=== PATIENT | female | born 1930 | race Caucasian/White ===

== ENCOUNTER → 2016-05-17 | Outpatient (REF) | payer MEDICARE ==
[~2016-05-17] MED LIST: ALPR0.25 PO; ATEN25TA PO; CALCARB PO; CIPR25SS OR; COLA100C2 OR; CRANBERRY ORAL PO; DOXE25CA2 PO; FISH1000 PO; MACR50CA PO; MULTIVIT PO; NORV5TAB OR; OMEP20TA7 PO; SIMV20TA2 PO; VIT D PO
== END ==
LOC: M SFHCWAGY 17:06
PROVIDERS: ATTEND Nurse Practitioner Family
DX: N76.2 Acute vulvitis (principal)
CPT/HCPCS: 87070; G0463

== ENCOUNTER → 2016-12-27 | Outpatient (CLI) | payer MEDICARE ==
--- NOTE | 2016-12-27 13:34 | REPMRS ---
Patient History The patient states she had a clinical breast exam in 12/2016. Patient is postmenopausal and has history of endometrial cancer at age 46. Family history of colorectal cancer in mother at age 50 or over. Took estrogen for 20 years. Digital Woman Screen Mammo: December 27, 2016 - Exam #: [id number] Bilateral CC and MLO view(s) were taken. Technologist: Jayne Arriola, Technologist Prior study comparison: December 22, 2015, digital woman screen mammo performed at [facility]. December 23, 2014, digital woman screen mammo performed at [facility] to [facility]. FINDINGS: There are scattered fibroglandular densities. There has been no change in the appearance of the mammogram from the prior studies. There is a mild amount of residual fibroglandular tissue which is fairly symmetric. There is no interval development of dominant mass, architectural distortion, or clustered microcalcification suggestive of malignancy. ASSESSMENT: BI-RADS/ACR category 1 mammogram. Negative. Recommendation Routine screening mammogram in 1 year (for women over age 40). This mammogram was interpreted with the aid of an FDA-approved computer-aided dectection system. Electronically Signed By: Suhail Samayoa MD 12/27/16 [id number]
== END ==
LOC: M WHC 11:15
PROVIDERS: ATTEND Physician Assistant
DX: Z01.419 Encounter for gynecological examination (general) (routine) without abnormal findings (principal); Z12.31 Encounter for screening mammogram for malignant neoplasm of breast; Z78.0 Asymptomatic menopausal state; Z92.23 Personal history of estrogen therapy; Z85.42 Personal history of malignant neoplasm of other parts of uterus; Z12.12 Encounter for screening for malignant neoplasm of rectum; N76.2 Acute vulvitis; R19.5 Other fecal abnormalities
CPT/HCPCS: 82270; G0101; G0202

== ENCOUNTER → 2017-04-11 | Outpatient (CLI) | payer MEDICARE ==
[2017-04-11 18:27] LABS: ESTIMATED AVERAGE GLUCOSE 128 MG/DL (60-110); HEMOGLOBIN A1c 6.1 %
== END ==
LOC: M LRY 10:54
DX: R73.03 Prediabetes (principal)
CPT/HCPCS: 83036

== ENCOUNTER → 2017-07-11 | Outpatient (CLI) | payer MEDICARE ==
[2017-07-11 12:07] LABS: ALBUMIN 3.5 GM/DL (3.2-5.2); ALKALINE PHOSPHATASE 88 U/L (45-117); ALT/SGPT 20 U/L (12-78); ANION GAP 7 MEQ/L (8-16); AST/SGOT 19 U/L (7-37); BILIRUBIN,TOTAL 0.6 MG/DL (0.2-1.0); BLOOD UREA NITROGEN 26 MG/DL (7-18); CALCIUM LEVEL 9.2 MG/DL (8.8-10.2); CARBON DIOXIDE LEVEL 25 MEQ/L (21-32); CHLORIDE LEVEL 110 MEQ/L (98-107); CHOLESTEROL LEVEL 168 MG/DL (<200); CHOLESTEROL RISK RATIO 4.666 (<5); CREATININE FOR GFR 0.86 MG/DL (0.55-1.30); GLOMERULAR FILTRATION RATE > 60.0 (>32); GLUCOSE, FASTING 136 MG/DL (70-100); HDL CHOLESTEROL 36 MG/DL (>40); LDL CHOLESTEROL 84.2 MG/DL (<100); NON-HDL-C 132 MG/DL; POTASSIUM SERUM 4.3 MEQ/L (3.5-5.1); SODIUM LEVEL 142 MEQ/L (136-145); TRIGLYCERIDES LEVEL 239 MG/DL (<150)
[2017-07-11 12:21] LABS: ESTIMATED AVERAGE GLUCOSE 134 MG/DL (60-110); HEMOGLOBIN A1c 6.3 %
== END ==
LOC: M LRY 09:58
DX: R73.03 Prediabetes (principal)
CPT/HCPCS: 80053

== ENCOUNTER → 2017-10-17 | Outpatient (CLI) | payer MEDICARE ==
[2017-10-17 12:24] LABS: ESTIMATED AVERAGE GLUCOSE 128 MG/DL (60-110); HEMOGLOBIN A1c 6.1 %
[2017-10-17 12:30] LABS: ALBUMIN 3.4 GM/DL (3.2-5.2); ALBUMIN/GLOBULIN RATIO 0.94 (1.00-1.93); ALKALINE PHOSPHATASE 73 U/L (45-117); ALT/SGPT 20 U/L (12-78); ANION GAP 9 MEQ/L (8-16); AST/SGOT 17 U/L (7-37); BILIRUBIN,TOTAL 0.5 MG/DL (0.2-1.0); BLOOD UREA NITROGEN 27 MG/DL (7-18); CARBON DIOXIDE LEVEL 25 MEQ/L (21-32); CHLORIDE LEVEL 109 MEQ/L (98-107); CHOLESTEROL LEVEL 149 MG/DL (<200); CHOLESTEROL RISK RATIO 4.027 (<5); CREATININE FOR GFR 0.89 MG/DL (0.55-1.30); FREE T4 0.78 NG/DL (0.76-1.46); GLOMERULAR FILTRATION RATE > 60.0 (>32); GLUCOSE, FASTING 122 MG/DL (70-100); HDL CHOLESTEROL 37 MG/DL (>40); LDL CHOLESTEROL 60.4 MG/DL (<100); NON-HDL-C 112 MG/DL; POTASSIUM SERUM 4.4 MEQ/L (3.5-5.1); SODIUM LEVEL 143 MEQ/L (136-145); TRIGLYCERIDES LEVEL 258 MG/DL (<150)
== END ==
LOC: M LRY 09:03
DX: I12.9 Hypertensive chronic kidney disease with stage 1 through stage 4 chronic kidney disease, or unspecified chronic kidney disease (principal); E78.2 Mixed hyperlipidemia; R73.03 Prediabetes
CPT/HCPCS: 84443

== ENCOUNTER 2018-01-06 09:17 | Emergency (ER) | payer MEDICARE ==
[2018-01-06 10:04] LABS: BEDSIDE GLUCOSE 117 MG/DL (83-110)
[2018-01-06] MEDS: NS 500 ML IV ×2 (10:04→11:50)
[2018-01-06 10:15] LABS: BASO % 0.4 % (0.0-1.0); EOS # 0.1 10^3/uL (0.0-0.50); EOS % 1.4 % (0.0-3.0); HEMATOCRIT 41.3 % (36.0-47.0); HEMOGLOBIN 13.7 g/dl (12.0-15.5); IMMATURE GRANULOCYTE % 0.3 % (0-3.0); LYMPH # 1.8 10^3/uL (1.5-4.5); LYMPH % 23.6 % (24.0-44.0); MEAN CORPUSCULAR HEMOGLOBIN 31.6 pg (27.0-33.0); MEAN CORPUSCULAR HGB CONC 33.2 g/dl (32.0-36.5); MEAN CORPUSCULAR VOLUME 95.4 fl (80.0-96.0); MONO # 0.6 10^3/uL (0.0-0.8); MONO % 7.9 % (0.0-5.0); NEUTROPHILS # 5.1 10^3/uL (1.8-7.7); NEUTROPHILS % 66.4 % (36.0-66.0); PLATELET COUNT, AUTOMATED 241 10^3/uL (150-450); RED BLOOD COUNT 4.33 10^6/uL (4.00-5.40); WHITE BLOOD COUNT 7.6 10^3/uL (4.0-10.0)
[2018-01-06 10:33] LABS: AMMONIA 26 uMOL/L (<32)
[2018-01-06 11:10] LABS: AMORPHOUS SEDIMENT RFX SMALL (NEGATIVE); KETONE, URINE AUTO RFX NEGATIVE (NEGATIVE); LEUKOCYTE ESTERASE UR AUTO RFX 3+ (NEGATIVE); MUCUS, URINE RFX SMALL (NEGATIVE); NITRITE, URINE AUTO RFX NEGATIVE (NEGATIVE); RBC, URINE AUTO RFX 4 /HPF (0-3); SPECIFIC GRAVITY UR AUTO RFX 1.019 (1.002-1.035); SQUAM EPITHELIAL CELL UR AURFX 0 /HPF (0-6)
[2018-01-06 11:11] LABS: WBC, URINE AUTO RFX 15 /HPF (0-3)
[2018-01-06 11:17] LABS: ALBUMIN 3.3 GM/DL (3.2-5.2); ALKALINE PHOSPHATASE 72 U/L (45-117); ALT/SGPT 24 U/L (12-78); ANION GAP 6 MEQ/L (8-16); AST/SGOT 23 U/L (7-37); BILIRUBIN,DIRECT < 0.1 MG/DL (0.0-0.2); BILIRUBIN,TOTAL 0.4 MG/DL (0.2-1.0); BLOOD UREA NITROGEN 32 MG/DL (7-18); CARBON DIOXIDE LEVEL 29 MEQ/L (21-32); CHLORIDE LEVEL 108 MEQ/L (98-107); CPK CREATINE PHOSPHOKINASE 50 U/L (26-192); CREATININE FOR GFR 1.12 MG/DL (0.55-1.30); GLUCOSE, FASTING 120 MG/DL (70-100); POTASSIUM SERUM 4.4 MEQ/L (3.5-5.1); SODIUM LEVEL 143 MEQ/L (136-145); TOTAL PROTEIN 6.6 GM/DL (6.4-8.2); TROPONIN I < 0.02 NG/ML (< 0.10)
[2018-01-06] MEDS: PHENAZOPYRIDINE 100 MG TAB PO (13:01)
[2018-01-06] MEDS: CEPHALEXIN 500 MG CAP PO (13:01)
== END 2018-01-06 14:23 | disposition home or self-care (01) ==
LOC: M ED 09:17
DX: N39.0 Urinary tract infection, site not specified (principal); E86.0 Dehydration; I10 Essential (primary) hypertension; E78.5 Hyperlipidemia, unspecified; F41.9 Anxiety disorder, unspecified; Z79.899 Other long term (current) drug therapy; Z88.2 Allergy status to sulfonamides; Z87.891 Personal history of nicotine dependence
CPT/HCPCS: 70450

== ENCOUNTER → 2018-01-28 | Outpatient (CLI) | payer MEDICARE ==
[2018-01-28 17:35] LABS: ESTIMATED AVERAGE GLUCOSE 131 MG/DL (60-110); HEMOGLOBIN A1c 6.2 %
== END ==
LOC: M LRY 09:47
DX: R73.03 Prediabetes (principal)
CPT/HCPCS: 83036

== ENCOUNTER → 2018-02-04 | Outpatient (REF) | payer MEDICARE | LOC: M LAB REF 17:12 | DX: R30.0 Dysuria (principal) | CPT/HCPCS: 87186 ==

== ENCOUNTER → 2018-02-06 | Outpatient (CLI) | payer MEDICARE ==
[~2018-02-06] MED LIST changes: +8 HO650T2 PO; +FURO20TA2 PO; +KEFL500C17 PO; +NEUR100C PO; +PYRI1TAB5 PO
--- NOTE | 2018-02-06 12:57 | REPMRS ---
Patient History The patient states she had a clinical breast exam in 01/2018. Family history of colorectal cancer at age 50 or over in mother. Took estrogen for 20 years. 3D TOMOSYNTHESIS WAS PERFORMED. Digital Woman Screen Mammo: February 06, 2018 - Exam #: [id number] Bilateral CC and MLO view(s) were taken. Technologist: Jayne Arriola, Technologist Prior study comparison: December 27, 2016, digital woman screen mammo performed at [facility]. December 22, 2015, digital woman screen mammo performed at [facility] to [facility]. FINDINGS: There are scattered fibroglandular densities. There has been no change in the appearance of the mammogram from the prior studies. There is a mild amount of residual fibroglandular tissue which is fairly symmetric. There is no interval development of dominant mass, architectural distortion, or clustered microcalcification suggestive of malignancy. Assessment: BI-RADS/ACR category 1 mammogram. Negative. Recommendation Routine screening mammogram in 1 year (for women over age 40). This mammogram was interpreted with the aid of an FDA-approved computer-aided dectection system. Electronically Signed By: Suhail Samayoa MD 02/06/18 [id number]
== END ==
LOC: M WHC 10:59
PROVIDERS: ATTEND Nurse Practitioner Family
DX: Z01.419 Encounter for gynecological examination (general) (routine) without abnormal findings (principal); Z12.31 Encounter for screening mammogram for malignant neoplasm of breast; Z80.0 Family history of malignant neoplasm of digestive organs; Z92.23 Personal history of estrogen therapy; Z12.12 Encounter for screening for malignant neoplasm of rectum
CPT/HCPCS: 77063; 77067; 82270; G0101

== ENCOUNTER → 2018-02-14 | Outpatient (CLI) | payer MEDICARE ==
[2018-02-14 16:54] LABS: APPEARANCE, URINE HAZY (CLEAR); BACTERIA, URINE AUTO NEGATIVE (NEGATIVE); BILIRUBIN, URINE AUTO NEGATIVE (NEGATIVE); BLOOD, URINE BLOOD NEGATIVE (NEGATIVE); COLOR, URINE AMBER (YELLOW); GLUCOSE, URINE (UA) AUTO NEGATIVE (NEGATIVE); KETONE, URINE AUTO NEGATIVE (NEGATIVE); LEUKOCYTE ESTERASE, URINE AUTO 1+ (NEGATIVE); NITRITE, URINE AUTO NEGATIVE (NEGATIVE); PROTEIN, URINE AUTO 1+ mg/dL (NEGATIVE); RBC, URINE AUTO 3 /HPF (0-3); SPECIFIC GRAVITY URINE AUTO 1.025 (1.002-1.035); SQUAMOUS EPITHELIAL CELL UR AU 1 /HPF (0-6); UROBILINOGEN, URINE AUTO 0.2 mg/dL (0.0-2.0); WBC, URINE AUTO 8 /HPF (0-3)
== END ==
LOC: M LRY 10:00
PROVIDERS: ATTEND Physician Assistant
DX: N39.0 Urinary tract infection, site not specified (principal)

== ENCOUNTER → 2018-05-01 | Outpatient (CLI) | payer MEDICARE ==
[~2018-05-01] MED LIST changes: +AUGM875T28 PO; +CRAN400C PO; +DOCU100C16 PO; +DOXE25CA PO; +GABA-1171 PO; +METO1TAB7 PO; +OMEP20CA3 PO; +SERT25TA88 PO; +TYLE650T35 PO; +VITMTA PO
[2018-05-01 12:15] LABS: CHOLESTEROL RISK RATIO 4.526 (<5)
[2018-05-01 13:19] LABS: HEMOGLOBIN A1c 6.3 %
== END ==
LOC: M LRY 09:13
PROVIDERS: ATTEND Physician Assistant
DX: R73.03 Prediabetes (principal)

== ENCOUNTER → 2018-05-06 | Outpatient (REF) | payer MEDICARE | LOC: M LAB REF 17:49 | PROVIDERS: ATTEND Family Medicine | DX: N76.0 Acute vaginitis (principal) ==

== ENCOUNTER 2018-05-07 19:23 | Inpatient (IN) | payer MEDICARE ==
[~2018-05-07] VITALS: Ht 160 cm; Wt 70.5 kg
[2018-05-07] MEDS: DOXEPIN 25 MG CAP PO SCH (02:00)
[~2018-05-07 19:23] MED LIST changes: -AUGM875T28 PO; -CRAN400C PO; -DOCU100C16 PO; -DOXE25CA PO; -GABA-1171 PO; -METO1TAB7 PO; -OMEP20CA3 PO; -SERT25TA88 PO; -TYLE650T35 PO; -VITMTA PO
[2018-05-07] MEDS ORDERED: ACETAMINOPHEN 325 MG TAB As Ordered ONE (19:56)
[2018-05-07] MEDS ORDERED: NS 500 ML IV ONE (20:00)
[2018-05-07] MEDS ORDERED: ACETAMINOPHEN 325 MG TAB PO ONE ×2 (20:00)
[2018-05-07 20:19] LABS: BASO # 0.1 10^3/uL (0.0-0.2); BASO % 0.2 % (0.0-1.0); HEMATOCRIT 42.2 % (36.0-47.0); HEMOGLOBIN 14.1 g/dl (12.0-15.5); LYMPH # 0.7 10^3/uL (1.5-4.5); LYMPH % 2.9 % (24.0-44.0); MEAN CORPUSCULAR HEMOGLOBIN 31.3 pg (27.0-33.0); MEAN CORPUSCULAR HGB CONC 33.4 g/dl (32.0-36.5); MEAN CORPUSCULAR VOLUME 93.8 fl (80.0-96.0); MONO # 1.3 10^3/uL (0.0-0.8); MONO % 5.7 % (0.0-5.0); NEUTROPHILS # 20.7 10^3/uL (1.8-7.7); NEUTROPHILS % 90.5 % (36.0-66.0); PLATELET COUNT, AUTOMATED 236 10^3/uL (150-450); WHITE BLOOD COUNT 22.9 10^3/uL (4.0-10.0)
[2018-05-07 20:53] LABS: ALBUMIN 3.8 GM/DL (3.2-5.2); BILIRUBIN,TOTAL 0.5 MG/DL (0.2-1.0); CALCIUM LEVEL 9.1 MG/DL (8.8-10.2); CREATININE FOR GFR 1.33 MG/DL (0.55-1.30); FREE THYROXINE INDEX 1.7 % (1.3-4.8); GLOMERULAR FILTRATION RATE 40.2 (>32); POTASSIUM SERUM 3.9 MEQ/L (3.5-5.1); THYROID STIMULATING HORMONE 0.49 uIU/ML (0.358-3.740); TOTAL PROTEIN 7.4 GM/DL (6.4-8.2)
--- NOTE | 2018-05-07 21:05 | REP ---
PA and lateral chest: Comparison is the portable chest dated 04/02/2010. The costophrenic angles are mildly effaced compatible with infiltrates/effusions/combination, as an interval change. Lung lomax otherwise clear. Cardiac size is enlarged, unchanged. The hira, mediastinum, skeletal structures are unchanged. There is demineralization and thoracic spine kyphosis. Impression: Small bilateral pleural effusion/infiltrate/combination. Chronic cardiomegaly. Demineralization and kyphosis. Electronically Signed by Suhail Hua MD 05/07/2018 08:57 P
[2018-05-07 21:10] LABS: APPEARANCE, URINE HAZY (CLEAR); BACTERIA, URINE AUTO 1+ (NEGATIVE); BILIRUBIN, URINE AUTO NEGATIVE (NEGATIVE); BLOOD, URINE BLOOD NEGATIVE (NEGATIVE); COLOR, URINE YELLOW (YELLOW); GLUCOSE, URINE (UA) AUTO NEGATIVE (NEGATIVE); KETONE, URINE AUTO NEGATIVE (NEGATIVE); LEUKOCYTE ESTERASE, URINE AUTO 3+ (NEGATIVE); MUCUS, URINE SMALL (NEGATIVE); NITRITE, URINE AUTO NEGATIVE (NEGATIVE); PROTEIN, URINE AUTO 2+ mg/dL (NEGATIVE); RBC, URINE AUTO 10 /HPF (0-3); SPECIFIC GRAVITY URINE AUTO 1.018 (1.002-1.035); SQUAMOUS EPITHELIAL CELL UR AU 3 /HPF (0-6); UROBILINOGEN, URINE AUTO 0.2 mg/dL (0.0-2.0); WBC, URINE AUTO 121 /HPF (0-3)
[2018-05-07] MEDS ORDERED: cefTRIAXone SOD 2 GM in D5W MINI-BAG PLUS 50 ML IV ONE (21:15)
[2018-05-07] MEDS ORDERED: METO1TAB7 PO (21:45)
[2018-05-07] MEDS ORDERED: GABA-1171 PO (21:45)
[2018-05-07] MEDS ORDERED: ALPR0.25 PO (21:45)
[2018-05-07] MEDS ORDERED: TYLE650T35 PO ×2 (21:45)
[2018-05-07] MEDS ORDERED: AUGM875T28 PO (21:45)
[2018-05-07] MEDS ORDERED: DOXE25CA PO (21:45)
[2018-05-07] MEDS ORDERED: DOCU100C16 PO (21:45)
[2018-05-07] MEDS ORDERED: SERT25TA88 PO (21:45)
[2018-05-07] MEDS ORDERED: FURO20TA2 PO (21:45)
[2018-05-07] MEDS ORDERED: SIMV20TA2 PO (21:45)
[2018-05-07] MEDS ORDERED: VITMTA PO (21:45)
[2018-05-07] MEDS ORDERED: PYRI1TAB5 PO (21:45)
[2018-05-07] MEDS ORDERED: OMEP20CA3 PO (21:45)
[2018-05-07] MEDS ORDERED: CRAN400C PO (21:45)
[2018-05-07] MEDS ORDERED: FISH1000 PO (21:45)
[2018-05-07] MEDS ORDERED: ONDANSETRON 4MG/2ML VIAL (J2405) IV PRN (22:00)
[2018-05-07] MEDS ORDERED: DOCUSATE SODIUM 100 MG CAP PO PRN (22:00)
[2018-05-07] MEDS ORDERED: cefTRIAXone SOD 1 GM in D5W MINI-BAG PLUS 50 ML IV SCH (22:00)
[2018-05-07] MEDS ORDERED: NS 750 ML IV SCH (22:00)
[2018-05-07] MEDS ORDERED: ACETAMINOPHEN TAB 650MG DOSE (2X325MG) PO PRN (22:00)
[2018-05-07] MEDS ORDERED: OMEPRAZOLE 20 MG CAP PO PRN (22:00)
[2018-05-07] MEDS ORDERED: PILL CRUSHER/CUTTER 1 EACH XX PRN (22:15)
--- NOTE | 2018-05-07 23:03 | HPE ---
DATE OF ADMISSION: 05/07/2018 CHIEF COMPLAINT: Subjective fevers and chills, generalized feeling unwell. HISTORY OF THE PRESENT ILLNESS: The patient is an 88-year-old female, significant past medical history of hypertension, gastroesophageal reflux disease (GERD), hyperlipidemia, chronic kidney disease. She presented to the emergency room with one day of subjective fevers and chills, generalized feeling unwell, nausea. She presented to urgent care prior to presenting to the emergency room where she was diagnosed with a urinary tract infection (UTI). She was given Augmentin. She took one Augmentin prior to coming to the hospital, as she became somewhat confused at home. She is accompanied at the bedside by her family members. Currently patient's mentation is back intact. She has received some intravenous (IV) fluids as well as Rocephin in the emergency room. She denies any abdominal pain. She denies any dysuria, frequency, diarrhea, constipation, cough, chest pain, shortness of breath. PAST MEDICAL HISTORY: See history of the present illness. PAST SURGICAL HISTORY: She had a hysterectomy for uterine cancer. HOME MEDICATIONS: Includes: - Xanax. - She recently got a prescription for Augmentin for which she only took one pill today. - Lasix - gabapentin - metoprolol - omeprazole - Pyridium - Zoloft - Zocor ALLERGIES: To [employer], [employer]. Reaction is unknown. SOCIAL HISTORY: Former smoker. Denies alcohol or illicit drug use. FAMILY HISTORY: Cancers of gastrointestinal tract. REVIEW OF SYSTEMS: A 12-point review of systems was completed, all of which were negative except those listed in the history of the present illness. VITAL SIGNS ON ADMISSION: Maximum temperature (T max) 104, pulse of 97, respirations 24, blood pressure 153/65, saturating at 95% on room air. PHYSICAL EXAM: General: She is well nourished, in no apparent distress. Head is normocephalic, atraumatic Eyes: Extraocular movements are intact. Pupils equal, round, reactive to light. Neck is supple. No jugular venous pressure (JVP). Lungs: Clear to auscultation. No crackles, wheezes. Cardiovascular: Regular rate and rhythm. Normal S1, S2. No murmurs, gallops, or rubs. Abdomen: Soft, nontender, nondistended. Positive bowel sounds. No rebound, no guarding. Extremities: No pitting edema. No calf tenderness. Skin: Intact. No rashes, lesions, or breakdown. Neurological: Alert and oriented times three. No focal deficits appreciated on exam. LABS AND IMAGING: Done in the emergency room. White count of 22, hemoglobin and hematocrit of 14 over 42, platelets of 236. Chemistry shows a BUN and creatinine of 32 over 1.33, baseline creatinine of 1.1, lactate of 3.3. UA shows 121 WBCs, 10 RBCs, 3 squamous epithelial cells. Chest x-ray shows small bilateral pleural effusions, cardiomegaly. ASSESSMENT AND PLAN: Sepsis secondary to urinary tract infection. Will admit the patient to the medical-surgical floor, gentle hydration, ceftriaxone, urinalysis (UA), urine culture sent, trend as per sensitivities. For the rest of her chronic medical conditions: Anxiety: Continue Xanax as needed. Hypertension: Metoprolol with holding parameters. GERD: Continue proton pump inhibitor (PPI). Mood disorder: Continue Zoloft and Xanax. Hyperlipidemia: Continue Zocor. Supportive: Deep vein thrombosis (DVT) prophylaxis: Heparin subcu. Gastrointestinal (GI) prophylaxis: Already on PPI. Diet: Cardiac.
[2018-05-07] MEDS: SIMVASTATIN 20 MG TAB PO SCH (23:51)
[2018-05-07] MEDS: GABAPENTIN 100 MG CAP PO SCH (23:51)
[2018-05-07] MEDS: ALPRAZolam 0.25 MG TAB PO SCH (23:51)
[2018-05-08] MEDS: HEPARIN SOD (PORCINE) 5000 UNITS/ML VIAL SC SCH ×3 (06:17→22:01)
[2018-05-08 07:10] LABS: HEMATOCRIT 35.5 % (36.0-47.0); MEAN CORPUSCULAR HEMOGLOBIN 31.3 pg (27.0-33.0); MEAN CORPUSCULAR HGB CONC 33.8 g/dl (32.0-36.5); MEAN CORPUSCULAR VOLUME 92.4 fl (80.0-96.0); PLATELET COUNT, AUTOMATED 202 10^3/uL (150-450); RED BLOOD COUNT 3.84 10^6/uL (4.00-5.40); WHITE BLOOD COUNT 22.6 10^3/uL (4.0-10.0)
[2018-05-08 07:30] LABS: CALCIUM LEVEL 8.1 MG/DL (8.8-10.2); CREATININE FOR GFR 1.13 MG/DL (0.55-1.30); GLOMERULAR FILTRATION RATE 48.5 (>32); POTASSIUM SERUM 3.7 MEQ/L (3.5-5.1)
[2018-05-08 08:00] VITALS: BP 126/70
[2018-05-08] MEDS: MULTIVITAMINS/MINERALS THERAP 1 TAB PO SCH (08:53)
[2018-05-08] MEDS: GABAPENTIN 100 MG CAP PO SCH ×2 (08:53→22:01)
[2018-05-08] MEDS: SERTRALINE HCL 25 MG TABLET PO SCH (08:53)
[2018-05-08] MEDS: METOPROLOL SUCC (TopROL XL) 50MG **XL** TAB PO SCH (08:54)
[2018-05-08 14:00] VITALS: BP 141/60
[2018-05-08 16:00] VITALS: BP 145/61
--- NOTE | 2018-05-08 16:30 | IPNPDOC ---
Subjective Date Seen The patient was seen on 05/08/18. Subjective Chief Complaint/HPI Patient seen and examined at the bedside this morning. States that she feels much more alert and oriented this morning. Denies any acute overnight complaints. The patient's fever curve has trended downward and she remains hemodynamically stable. Objective Physical Examination General Exam: Positive: Alert, Cooperative, No Acute Distress ENT Exam: Positive: Atraumatic, Mucous membr. moist/pink Neck Exam: Negative: JVD Chest Exam: Positive: Clear to auscultation, Normal air movement Heart Exam: Positive: Rate Normal, Normal S1, Normal S2 Abdomen Exam: Positive: Soft; Negative: Tenderness Extremity Exam: Positive: Swelling (trace pitting in the lower extremities bilaterally); Negative: Tenderness Psych Exam: Positive: Oriented x 3 Assessment /Plan Plan/VTE VTE Prophylaxis Ordered?: Yes Plan Sepsis 2/2 UTI WBC downtrending and Fever curve has also improved following IV Abx therapy Patient reports feeling better this morning Cultures still pending Patient hemodynamically stable We will cont to monitor Dyslipidemia Continue statin Peripheral neuropathy Continue Neurontin GERD Continue PPI Anxiety/depression Continue Zoloft DVT prophylaxis Heparin subcutaneous Dispo--pending clinical improvement. Physical therapy ordered for functional optimization. VS, I&O, 24H, Fishbone Vital Signs/I&O Vital Signs Date Time Temp Pulse Resp B/P (MAP) Pulse Ox O2 Delivery O2 Flow Rate FiO2 05/08/18 14:00 97.1 77 17 141/60 (87) 95 05/08/18 05:20 Room Air I&O- Last 24 Hours up to 6 AM 05/08/18 06:00 Intake Total 50 ml Balance 50 ml Laboratory Data 24H LABS Laboratory Tests 2 05/07/18 20:02: Immature Granulocyte % (Auto) 0.7, White Blood Count 22.9H, Red Blood Count 4.50, Hemoglobin 14.1, Hematocrit 42.2, Mean Corpuscular Volume 93.8, Mean Corpuscular Hemoglobin 31.3, Mean Corpuscular Hemoglobin Concent 33.4, Red Cell Distribution Width 13.2, Platelet Count 236, Neutrophils (%) (Auto) 90.5H, Lymphocytes (%) (Auto) 2.9L, Monocytes (%) (Auto) 5.7H, Eosinophils (%) (Auto) 0.0, Basophils (%) (Auto) 0.2, Neutrophils # (Auto) 20.7H, Lymphocytes # (Auto) 0.7L, Monocytes # (Auto) 1.3H, Eosinophils # (Auto) 0.0, Basophils # (Auto) 0.1, Nucleated Red Blood Cells % (auto) 0.0, Urine Appearance HAZY, Urine Color YELLOW, Urine pH 5.0, Urine Specific Buhl 1.018, Urine Protein 2+H, Urine Glucose (UA) NEGATIVE, Urine Ketones NEGATIVE, Urine Urobilinogen 0.2, Urine Bilirubin NEGATIVE, Urine Leukocyte Esterase 3+H, Urine Blood NEGATIVE, Urine Nitrite NEGATIVE, Urine WBC (Auto) 121H, Urine RBC (Auto) 10H, Urine Hyaline Casts (Auto) 0, Urine Bacteria (Auto) 1+H, Urine Squamous Epithelial Cells 3, Urine Mucus (Auto) SMALL, Urine Sperm (Auto) , Anion Gap 11, Glomerular Filtration Rate 40.2, Lactic Acid Level 3.3*H, Blood Urea Nitrogen 32H, Creatinine 1.33H, Sodium Level 138, Potassium Level 3.9, Chloride Level 103, Carbon Dioxide Level 24, Calcium Level 9.1, Aspartate Amino Transf (AST/SGOT) 21, Alanine Aminotransferase (ALT/SGPT) 22, Alkaline Phosphatase 82, Total Bilirubin 0.5, Total Protein 7.4, Albumin 3.8, Albumin/Globulin Ratio 1.06, Thyroid Stimulating Hormone (TSH) 0.490, Free Thyroxine Index 1.7, Thyroxine (T4) 5.0, Triiodothyronine (T3) Uptake 34 05/08/18 00:29: Lactic Acid Followup at 4 Hours 2.1*H 05/08/18 06:44: Nucleated Red Blood Cells % (auto) 0.0, Anion Gap 8, Glomerular Filtration Rate 48.5, Blood Urea Nitrogen 34H, Creatinine 1.13, Sodium Level 139, Potassium Level 3.7, Chloride Level 106, Carbon Dioxide Level 25, Calcium Level 8.1L CBC/BMP Laboratory Tests 05/07/18 20:02 Red Blood Count 4.50, Mean Corpuscular Volume 93.8, Mean Corpuscular Hemoglobin 31.3, Mean Corpuscular Hemoglobin Concent 33.4, Red Cell Distribution Width 13.2, Neutrophils (%) (Auto) 90.5 H, Lymphocytes (%) (Auto) 2.9 L, Monocytes (%) (Auto) 5.7 H, Eosinophils (%) (Auto) 0.0, Basophils (%) (Auto) 0.2, Neutrophils # (Auto) 20.7 H, Lymphocytes # (Auto) 0.7 L, Monocytes # (Auto) 1.3 H, Eosinophils # (Auto) 0.0, Basophils # (Auto) 0.1, Calcium Level 9.1, Aspartate Amino Transf (AST/SGOT) 21, Alanine Aminotransferase (ALT/SGPT) 22, Alkaline Phosphatase 82, Total Bilirubin 0.5, Total Protein 7.4, Albumin 3.8 05/08/18 06:44 Red Blood Count 3.84 L, Mean Corpuscular Volume 92.4, Mean Corpuscular Hemo globin 31.3, Mean Corpuscular Hemoglobin Concent 33.8, Red Cell Distribution Width 13.6, Calcium Level 8.1 L Microbiology Microbiology 05/08/18 Blood Culture, Received Pending 05/07/18 Blood Culture, Received Pending 05/08/18 Respiratory Virus Panel (PCR) ([facility]) - Final, Complete 05/07/18 Urine Culture - Preliminary, Resulted Strep Agalactiae Group B ARACELI FERNANDEZ MD May 08, 2018 16:30
--- NOTE | 2018-05-08 20:48 | ECGEPIP ---
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
[2018-05-08 22:00] VITALS: BP 157/67
[2018-05-08] MEDS: cefTRIAXone SOD 1 GM in D5W MINI-BAG PLUS 50 ML IV SCH (22:01)
[2018-05-08] MEDS: DOXEPIN 25 MG CAP PO SCH (22:01)
[2018-05-08] MEDS: ALPRAZolam 0.25 MG TAB PO SCH (22:01)
[2018-05-08] MEDS: SIMVASTATIN 20 MG TAB PO SCH (22:01)
[2018-05-09] MEDS: HEPARIN SOD (PORCINE) 5000 UNITS/ML VIAL SC SCH ×3 (05:42→21:00)
[2018-05-09 06:00] VITALS: BP 162/74
[2018-05-09 06:46] LABS: HEMATOCRIT 34.8 % (36.0-47.0); HEMOGLOBIN 11.8 g/dl (12.0-15.5); MEAN CORPUSCULAR HEMOGLOBIN 31.1 pg (27.0-33.0); MEAN CORPUSCULAR HGB CONC 33.9 g/dl (32.0-36.5); MEAN CORPUSCULAR VOLUME 91.8 fl (80.0-96.0); PLATELET COUNT, AUTOMATED 185 10^3/uL (150-450); RED BLOOD COUNT 3.79 10^6/uL (4.00-5.40); WHITE BLOOD COUNT 13.3 10^3/uL (4.0-10.0)
[2018-05-09 07:13] LABS: CALCIUM LEVEL 8.4 MG/DL (8.8-10.2); GLOMERULAR FILTRATION RATE 55.8 (>32); POTASSIUM SERUM 3.6 MEQ/L (3.5-5.1)
[2018-05-09] MEDS: GABAPENTIN 100 MG CAP PO SCH ×2 (09:42→20:59)
[2018-05-09] MEDS: SERTRALINE HCL 25 MG TABLET PO SCH (09:43)
[2018-05-09] MEDS: MULTIVITAMINS/MINERALS THERAP 1 TAB PO SCH (09:43)
[2018-05-09] MEDS: METOPROLOL SUCC (TopROL XL) 50MG **XL** TAB PO SCH (09:44)
[2018-05-09 14:00] VITALS: BP 141/59
[2018-05-09] MEDS: DOXEPIN 25 MG CAP PO SCH (20:59)
[2018-05-09] MEDS: ALPRAZolam 0.25 MG TAB PO SCH (20:59)
[2018-05-09] MEDS: cefTRIAXone SOD 1 GM in D5W MINI-BAG PLUS 50 ML IV SCH (21:00)
[2018-05-09] MEDS: SIMVASTATIN 20 MG TAB PO SCH (21:00)
[2018-05-09 22:00] VITALS: BP 147/73
--- NOTE | 2018-05-09 23:20 | IPNPDOC ---
Subjective Date Seen The patient was seen on 05/09/18. Subjective Chief Complaint/HPI Fever, chills, confusion Events since last encounter Feels much better today. Though still continues to complains of vaginal discomfort. No further feveres or chills. Objective Physical Examination General Exam: Positive: Alert, Cooperative, No Acute Distress ENT Exam: Positive: Atraumatic, Mucous membr. moist/pink Neck Exam: Negative: JVD Chest Exam: Positive: Clear to auscultation, Normal air movement Heart Exam: Positive: Rate Normal, Normal S1, Normal S2 Abdomen Exam: Positive: Soft; Negative: Tenderness Extremity Exam: Positive: Swelling (trace pitting in the lower extremities bilaterally); Negative: Tenderness Psych Exam: Positive: Oriented x 3 Assessment /Plan Assessment The patient is an 88-year-old female, significant past medical history of hypertension, gastroesophageal reflux disease (GERD), hyperlipidemia, chronic kidney disease. She presented to the emergency room with one day of subjective fevers and chills, generalized feeling unwell, nausea. She presented to urgent care prior to presenting to the emergency room where she was diagnosed with a urinary tract infection (UTI). She was given Augmentin. She took one Augmentin prior to coming to the hospital, as she became somewhat confused at home. In the ED she was noted to have high temp of 104 , UA was dirty. So the patient was diagnosed with UTI and sepsis and admitted. Sepsis 2/2 UTI urine culture staph agalactiae. culture of the vulva and vaginal area from urgent care shows staph agalactiae and MSSA continue ceftriaxone. Delirium due to infection and high fever Now resolved. Vulvo Vaginal fungal infection patient on clotrimazole/ steroid cream and well as intravaginal cotrimale. Dyslipidemia Continue statin Peripheral neuropathy Continue Neurontin GERD Continue PPI Anxiety/depression Continue Zoloft DVT prophylaxis Heparin subcutaneous Dispo--pending clinical improvement. Physical therapy ordered for functional optimization. Plan/VTE VTE Prophylaxis Ordered?: Yes VS, I&O, 24H, Fishbone Vital Signs/I&O Vital Signs Date Time Temp Pulse Resp B/P (MAP) Pulse Ox O2 Delivery O2 Flow Rate FiO2 05/09/18 14:00 99.0 76 17 141/59 (86) 95 05/08/18 05:20 Room Air I&O- Last 24 Hours up to 6 AM 05/09/18 06:00 Intake Total 2160 ml Output Total 0 ml Balance 2160 ml Laboratory Data 24H LABS Laboratory Tests 2 05/09/18 06:33: Nucleated Red Blood Cells % (auto) 0.0, Anion Gap 7L, Glomerular Filtration Rate 55.8, Blood Urea Nitrogen 31H, Creatinine 1.00, Sodium Level 140, Potassium Level 3.6, Chloride Level 107, Carbon Dioxide Level 26, Calcium Level 8.4L CBC/BMP Laboratory Tests 05/09/18 06:33 Red Blood Count 3.79 L, Mean Corpuscular Volume 91.8, Mean Corpuscular Hemoglobin 31.1, Mean Corpuscular Hemoglobin Concent 33.9, Red Cell Distribution Width 13.5, Calcium Level 8.4 L Microbiology Microbiology 05/08/18 Blood Culture - Preliminary, Resulted No growth after 24 hours . All specim... 05/07/18 Blood Culture - Preliminary, Resulted No Growth after 48 hours. All Specime... 05/08/18 Respiratory Virus Panel (PCR) ([facility]) - Final, Complete 05/07/18 Urine Culture - Final, Complete Strep Agalactiae Group B RACHEL ROBLERO MD May 09, 2018 23:19
[2018-05-10] MEDS: HEPARIN SOD (PORCINE) 5000 UNITS/ML VIAL SC SCH (05:36)
[2018-05-10 06:00] VITALS: BP 170/86
[2018-05-10 06:56] LABS: HEMATOCRIT 36.2 % (36.0-47.0); MEAN CORPUSCULAR HEMOGLOBIN 30.5 pg (27.0-33.0); MEAN CORPUSCULAR HGB CONC 33.1 g/dl (32.0-36.5); MEAN CORPUSCULAR VOLUME 92.1 fl (80.0-96.0); PLATELET COUNT, AUTOMATED 202 10^3/uL (150-450); RED BLOOD COUNT 3.93 10^6/uL (4.00-5.40); WHITE BLOOD COUNT 7.4 10^3/uL (4.0-10.0)
[2018-05-10 07:19] LABS: BLOOD UREA NITROGEN 26 MG/DL (7-18); CALCIUM LEVEL 8.6 MG/DL (8.8-10.2); CARBON DIOXIDE LEVEL 26 MEQ/L (21-32); CHLORIDE LEVEL 109 MEQ/L (98-107); CREATININE FOR GFR 0.88 MG/DL (0.55-1.30); GLOMERULAR FILTRATION RATE > 60.0 (>32); GLUCOSE, FASTING 131 MG/DL (70-100); POTASSIUM SERUM 3.7 MEQ/L (3.5-5.1); SODIUM LEVEL 141 MEQ/L (136-145)
[2018-05-10] MEDS: SERTRALINE HCL 25 MG TABLET PO SCH (08:45)
[2018-05-10] MEDS: GABAPENTIN 100 MG CAP PO SCH (08:45)
[2018-05-10] MEDS: MULTIVITAMINS/MINERALS THERAP 1 TAB PO SCH (08:45)
[2018-05-10 08:48] VITALS: BP 156/77
[2018-05-10] MEDS: METOPROLOL SUCC (TopROL XL) 50MG **XL** TAB PO SCH (08:48)
[2018-05-10] MEDS ORDERED: CEFD1CAP8 PO (09:29)
== END 2018-05-10 11:30 | disposition home or self-care (01) | DRG 872 ==
LOC: M ED 19:23 → EDBD 19:23 → M ED INP 21:47 → M MS5PR 05-08 15:49
PROVIDERS: ADMIT Internal Medicine; ATTEND Internal Medicine Nephrology
DX: A41.9 Sepsis, unspecified organism (principal); N39.0 Urinary tract infection, site not specified; N76.0 Acute vaginitis; F41.9 Anxiety disorder, unspecified; I12.9 Hypertensive chronic kidney disease with stage 1 through stage 4 chronic kidney disease, or unspecified chronic kidney disease; K21.9 Gastro-esophageal reflux disease without esophagitis; Z87.891 Personal history of nicotine dependence; E78.5 Hyperlipidemia, unspecified; N18.9 Chronic kidney disease, unspecified; Z79.899 Other long term (current) drug therapy; G62.9 Polyneuropathy, unspecified; F32.9 Major depressive disorder, single episode, unspecified

== ENCOUNTER → 2018-05-07 | Outpatient (REF) | payer MEDICARE | LOC: M SFHCLERA 14:02 | PROVIDERS: ATTEND Nurse Practitioner Family | DX: N30.01 Acute cystitis with hematuria (principal) ==

== ENCOUNTER → 2018-05-28 | Outpatient (REF) | payer MEDICARE ==
[~2018-05-28] MED LIST changes: +AUGM875T28 PO; +CEFD1CAP8 PO; +CRAN400C PO; +DOCU100C16 PO; +DOXE25CA PO; +GABA-1171 PO; +METO1TAB7 PO; +OMEP20CA3 PO; +SERT25TA88 PO; +TYLE650T35 PO; +VITMTA PO
[2018-05-28 18:48] LABS: APPEARANCE, URINE HAZY (CLEAR); BACTERIA, URINE AUTO NEGATIVE (NEGATIVE); BILIRUBIN, URINE AUTO NEGATIVE (NEGATIVE); BLOOD, URINE BLOOD NEGATIVE (NEGATIVE); COLOR, URINE YELLOW (YELLOW); GLUCOSE, URINE (UA) AUTO NEGATIVE (NEGATIVE); KETONE, URINE AUTO NEGATIVE (NEGATIVE); LEUKOCYTE ESTERASE, URINE AUTO 1+ (NEGATIVE); MUCUS, URINE SMALL (NEGATIVE); NITRITE, URINE AUTO NEGATIVE (NEGATIVE); PROTEIN, URINE AUTO NEGATIVE (NEGATIVE); RBC, URINE AUTO 1 /HPF (0-3); SPECIFIC GRAVITY URINE AUTO 1.021 (1.002-1.035); SQUAMOUS EPITHELIAL CELL UR AU 1 /HPF (0-6); UROBILINOGEN, URINE AUTO 0.2 mg/dL (0.0-2.0); WBC, URINE AUTO 30 /HPF (0-3)
== END ==
LOC: M SMT 17:26
PROVIDERS: ATTEND Nurse Practitioner Family
DX: N39.0 Urinary tract infection, site not specified (principal)
CPT/HCPCS: 51798; 81001; 87086; G0463

== ENCOUNTER → 2018-06-05 | Outpatient (CLI) | payer MEDICARE ==
--- NOTE | 2018-06-05 12:08 | REP ---
RENAL AND BLADDER ULTRASOUND: Real-time sonographic evaluation of the kidneys is performed. The kidneys are normal in size but increased in echotexture suggesting medical renal disease. Right kidney measures 10.2 x 6.0 x 5.0 cm and left kidney 9.5 x 4.9 x 4.7 cm. There is no hydronephrosis bilaterally. A cyst is seen in the mid right kidney measuring 6.5 x 5.7 x 7.0 cm. There are a few peripheral septations within the cyst which appear mildly thickened. This was present on the prior study of 04/03/2010, with a similar appearance but the cyst has increased in size on the current exam. Prior measurement was 5.1 x 4.9 x 3.9 cm. Urinary bladder is not optimally distended 4.9 x 5.8 x 3.3 cm for a total volume of 49 mL. No gross mass or calculus is seen. Ureteral jets are seen in the urinary bladder with Doppler color evaluation. There is post-void residual of 24 mL. IMPRESSION: Complex cyst mid right kidney with a few peripheral thickened internal septations having a similar appearance to a prior study 04/03/2010. It has mildly increased in size since that prior exam, previously maximum diameter was 5.1 cm and currently 7.0 cm. Echogenic kidney suggests medical renal disease. No hydronephrosis. Electronically Signed by Suhail Samayoa MD 06/05/2018 03:21 P
== END ==
LOC: M RAD 10:27
PROVIDERS: ATTEND Nurse Practitioner Family
DX: N28.1 Cyst of kidney, acquired (principal); N39.0 Urinary tract infection, site not specified; N76.0 Acute vaginitis

== ENCOUNTER → 2018-06-05 | Outpatient (REF) | payer MEDICARE | LOC: M LAB REF 17:36 | PROVIDERS: ATTEND Physician Assistant | DX: N76.0 Acute vaginitis (principal) ==

== ENCOUNTER → 2018-07-31 | Outpatient (CLI) | payer MEDICARE ==
[2018-07-31 11:51] LABS: BASO % 0.6 % (0.0-1.0); EOS # 0.2 10^3/uL (0.0-0.50); EOS % 2.4 % (0.0-3.0); HEMATOCRIT 43.1 % (36.0-47.0); HEMOGLOBIN 14.3 g/dl (12.0-15.5); LYMPH # 2.2 10^3/uL (1.5-4.5); MEAN CORPUSCULAR HEMOGLOBIN 31.2 pg (27.0-33.0); MEAN CORPUSCULAR HGB CONC 33.2 g/dl (32.0-36.5); MEAN CORPUSCULAR VOLUME 94.1 fl (80.0-96.0); MONO # 0.5 10^3/uL (0.0-0.8); MONO % 7.7 % (0.0-5.0); NEUTROPHILS # 3.4 10^3/uL (1.8-7.7); NEUTROPHILS % 54.1 % (36.0-66.0); PLATELET COUNT, AUTOMATED 254 10^3/uL (150-450); RED BLOOD COUNT 4.58 10^6/uL (4.00-5.40); WHITE BLOOD COUNT 6.3 10^3/uL (4.0-10.0)
[2018-07-31 12:16] LABS: HEMOGLOBIN A1c 6.2 %
[2018-07-31 12:56] LABS: ALBUMIN 3.5 GM/DL (3.2-5.2); BILIRUBIN,TOTAL 0.5 MG/DL (0.2-1.0); CALCIUM LEVEL 9.2 MG/DL (8.8-10.2); CHOLESTEROL RISK RATIO 4.194 (<5); CREATININE FOR GFR 1.01 MG/DL (0.55-1.30); FREE T4 0.86 NG/DL (0.76-1.46); GLOMERULAR FILTRATION RATE 55.2 (>32); POTASSIUM SERUM 4.4 MEQ/L (3.5-5.1); THYROID STIMULATING HORMONE 1.14 uIU/ML (0.358-3.740); TOTAL PROTEIN 7.1 GM/DL (6.4-8.2)
== END ==
LOC: M LRY 09:20
PROVIDERS: ATTEND Family Medicine
DX: I12.9 Hypertensive chronic kidney disease with stage 1 through stage 4 chronic kidney disease, or unspecified chronic kidney disease (principal); R73.03 Prediabetes; K21.9 Gastro-esophageal reflux disease without esophagitis; E78.2 Mixed hyperlipidemia

== ENCOUNTER 2018-10-19 15:31 | Emergency (ER) | payer MEDICARE ==
[~2018-10-19] VITALS: Ht 154.9 cm; Wt 70.0 kg
[~2018-10-19 15:31] MED LIST changes: -OMEP20CA3 PO; +OMEP20CA4 PO
[2018-10-19 16:17] LABS: BASO % 0.6 % (0.0-1.0); EOS # 0.2 10^3/uL (0.0-0.50); EOS % 2.1 % (0.0-3.0); HEMATOCRIT 44.6 % (36.0-47.0); HEMOGLOBIN 14.7 g/dl (12.0-15.5); LYMPH # 1.7 10^3/uL (1.5-4.5); LYMPH % 23.3 % (24.0-44.0); MEAN CORPUSCULAR HEMOGLOBIN 31.2 pg (27.0-33.0); MEAN CORPUSCULAR VOLUME 94.7 fl (80.0-96.0); MONO # 0.6 10^3/uL (0.0-0.8); MONO % 8.1 % (0.0-5.0); NEUTROPHILS # 4.8 10^3/uL (1.8-7.7); NEUTROPHILS % 65.6 % (36.0-66.0); PLATELET COUNT, AUTOMATED 249 10^3/uL (150-450); RED BLOOD COUNT 4.71 10^6/uL (4.00-5.40); WHITE BLOOD COUNT 7.3 10^3/uL (4.0-10.0)
[2018-10-19 16:47] LABS: CALCIUM LEVEL 9.7 MG/DL (8.8-10.2); CREATININE FOR GFR 0.94 MG/DL (0.55-1.30)
[2018-10-19] MEDS ORDERED: NS 500 ML IV ONE (17:30)
[2018-10-19] MEDS ORDERED: CIPROFLOXACIN 400 MG in APPROPRIATE DILUENT 1 EA IV ONE (17:30)
[2018-10-19 18:46] VITALS: BP 184/77
[2018-10-19] MEDS ORDERED: CIPR-249 PO (18:53)
== END 2018-10-19 19:13 | disposition home or self-care (01) ==
LOC: M ED 15:31
DX: N39.0 Urinary tract infection, site not specified (principal); I10 Essential (primary) hypertension; E78.5 Hyperlipidemia, unspecified; Z87.440 Personal history of urinary (tract) infections; Z86.19 Personal history of other infectious and parasitic diseases; Z87.891 Personal history of nicotine dependence; Z88.2 Allergy status to sulfonamides; Z79.899 Other long term (current) drug therapy
CPT/HCPCS: 80048; 81001; 83605; 85025; 87086; 96365; 99284; J0744

== ENCOUNTER → 2018-10-30 | Outpatient (CLI) | payer MEDICARE ==
[~2018-10-30] MED LIST changes: +CIPR-249 PO
[2018-10-30 11:45] LABS: BLOOD UREA NITROGEN 20 MG/DL (7-18); CALCIUM LEVEL 9.4 MG/DL (8.8-10.2); CARBON DIOXIDE LEVEL 27 MEQ/L (21-32); CHLORIDE LEVEL 109 MEQ/L (98-107); CREATININE FOR GFR 0.89 MG/DL (0.55-1.30); GLOMERULAR FILTRATION RATE > 60.0 (>32); GLUCOSE, FASTING 141 MG/DL (70-100); POTASSIUM SERUM 4.3 MEQ/L (3.5-5.1); SODIUM LEVEL 144 MEQ/L (136-145)
[2018-10-30 12:44] LABS: HEMOGLOBIN A1c 6.5 %
== END ==
LOC: M LRY 09:58
PROVIDERS: ATTEND Physician Assistant
DX: Z00.00 Encounter for general adult medical examination without abnormal findings (principal); R73.03 Prediabetes

== ENCOUNTER → 2018-11-05 | Outpatient (REF) | payer MEDICARE | LOC: M LABDRAW1 16:56 | PROVIDERS: ATTEND Family Medicine | DX: R60.0 Localized edema (principal); Z79.899 Other long term (current) drug therapy ==

== ENCOUNTER → 2018-11-12 | Outpatient (REF) | payer MEDICARE ==
[2018-11-12 20:42] LABS: APPEARANCE, URINE CLOUDY (CLEAR); BACTERIA, URINE AUTO 2+ (NEGATIVE); BILIRUBIN, URINE AUTO NEGATIVE (NEGATIVE); BLOOD, URINE BLOOD NEGATIVE (NEGATIVE); COLOR, URINE YELLOW (YELLOW); GLUCOSE, URINE (UA) AUTO NEGATIVE (NEGATIVE); KETONE, URINE AUTO NEGATIVE (NEGATIVE); LEUKOCYTE ESTERASE, URINE AUTO 3+ (NEGATIVE); MUCUS, URINE SMALL (NEGATIVE); NITRITE, URINE AUTO NEGATIVE (NEGATIVE); PROTEIN, URINE AUTO 1+ mg/dL (NEGATIVE); RBC, URINE AUTO 3 /HPF (0-3); SQUAMOUS EPITHELIAL CELL UR AU 20 /HPF (0-6); UROBILINOGEN, URINE AUTO 0.2 mg/dL (0.0-2.0); WBC, URINE AUTO 128 /HPF (0-3)
== END ==
LOC: M SMT 17:01
PROVIDERS: ATTEND Nurse Practitioner Family
DX: R30.0 Dysuria (principal)
CPT/HCPCS: 81001; 87088; 87186; G0463

== ENCOUNTER 2018-12-20 13:42 | Emergency (ER) | payer MEDICARE ==
[~2018-12-20] VITALS: Ht 154.9 cm; Wt 69.0 kg
[~2018-12-20 13:42] MED LIST changes: +SERT25TA21 PO; -SERT25TA88 PO
[2018-12-20] MEDS ORDERED: ONDANSETRON 4MG/2ML VIAL (J2405) IV ONE (14:15)
[2018-12-20] MEDS ORDERED: MORPHINE 2 MG/ML 1ML VIAL (J2270) IV PRN (14:15)
[2018-12-20] MEDS ORDERED: SERT25TA21 (14:20)
[2018-12-20] MEDS ORDERED: NITR100C2 (14:20)
--- NOTE | 2018-12-20 15:02 | REP ---
Single view right shoulder. Indication: Right shoulder trauma. Comparison: 05/07/2018. Findings: There is anterior inferior dislocation of the humerus from the glenohumeral joint without evidence of fracture. The visualized lung is clear. Impression: Dislocated right shoulder. Electronically Signed by Wilberto Rob DO 12/20/2018 02:53 P
[2018-12-20] MEDS ORDERED: LIDOCAINE 2% MDV 20 ML VIAL SC ONE (15:15)
[2018-12-20] MEDS ORDERED: NS 1,000 ML IV SCH (15:46)
[2018-12-20] MEDS ORDERED: PROPOFOL 200 MG/20 ML VIAL IV PRN (16:00)
[2018-12-20 17:15] VITALS: BP 170/79
--- NOTE | 2018-12-20 20:36 | REP ---
HISTORY: Single portable view of the right shoulder, status post glenohumeral dislocation reduction. This limited single portable AP view of the right shoulder shows the position of the humeral head to be superimposed over the glenoid region significantly changed from the prior exam when it was inferiorly displaced. Since this exam is limited by one view, I cannot confirm exact placement, however. This single limited exam cannot rule out a fracture. I see no definite fracture. IMPRESSION: As above. Correlate clinically. Electronically Signed by Saul Hodgson DO 12/23/2018 02:52 P
== END 2018-12-20 18:41 | disposition home or self-care (01) ==
LOC: M ED 13:42
DX: I10 Essential (primary) hypertension (principal); S43.014A Anterior dislocation of right humerus, initial encounter; S43.034A Inferior dislocation of right humerus, initial encounter; W19.XXXA Unspecified fall, initial encounter; Y92.9 Unspecified place or not applicable; Y93.9 Activity, unspecified; Y99.9 Unspecified external cause status; K21.9 Gastro-esophageal reflux disease without esophagitis; Z85.42 Personal history of malignant neoplasm of other parts of uterus; Z87.891 Personal history of nicotine dependence; Z88.2 Allergy status to sulfonamides
CPT/HCPCS: 23655; 73020; 73030; 93041; 94760; 96374; 96375; 99285; J2270; J2405

== ENCOUNTER → 2019-01-27 | Outpatient (REF) | payer MEDICARE ==
[~2019-01-27] MED LIST changes: +NITR100C2; +SERT25TA21; +SIMV20TA22 PO
[2019-01-27 19:39] LABS: APPEARANCE, URINE CLEAR (CLEAR); BACTERIA, URINE AUTO NEGATIVE (NEGATIVE); BILIRUBIN, URINE AUTO NEGATIVE (NEGATIVE); BLOOD, URINE BLOOD NEGATIVE (NEGATIVE); COLOR, URINE YELLOW (YELLOW); GLUCOSE, URINE (UA) AUTO NEGATIVE (NEGATIVE); KETONE, URINE AUTO NEGATIVE (NEGATIVE); LEUKOCYTE ESTERASE, URINE AUTO 1+ (NEGATIVE); NITRITE, URINE AUTO NEGATIVE (NEGATIVE); PROTEIN, URINE AUTO NEGATIVE (NEGATIVE); RBC, URINE AUTO 4 /HPF (0-3); SPECIFIC GRAVITY URINE AUTO 1.017 (1.002-1.035); SQUAMOUS EPITHELIAL CELL UR AU 1 /HPF (0-6); UROBILINOGEN, URINE AUTO 0.2 mg/dL (0.0-2.0); WBC, URINE AUTO 11 /HPF (0-3)
== END ==
LOC: M SMT 17:34
PROVIDERS: ATTEND Nurse Practitioner Family
DX: N39.0 Urinary tract infection, site not specified (principal)

== ENCOUNTER → 2019-01-29 | Outpatient (CLI) | payer MEDICARE ==
[2019-01-29 13:48] LABS: BASO # 0.1 10^3/uL (0.0-0.2); BASO % 0.6 % (0.0-1.0); EOS # 0.2 10^3/uL (0.0-0.5); EOS % 2.5 % (0.0-3.0); HEMATOCRIT 41.6 % (36.0-47.0); HEMOGLOBIN 13.6 g/dl (12.0-15.5); LYMPH # 1.4 10^3/uL (1.5-5.0); LYMPH % 17.5 % (24.0-44.0); MEAN CORPUSCULAR HEMOGLOBIN 30.7 pg (27.0-33.0); MEAN CORPUSCULAR HGB CONC 32.7 g/dl (32.0-36.5); MEAN CORPUSCULAR VOLUME 93.9 fl (80.0-96.0); MONO # 0.6 10^3/uL (0.0-0.8); MONO % 7.8 % (0.0-5.0); NEUTROPHILS # 5.8 10^3/uL (1.5-8.5); NEUTROPHILS % 71.4 % (36.0-66.0); PLATELET COUNT, AUTOMATED 266 10^3/uL (150-450); RED BLOOD COUNT 4.43 10^6/uL (4.00-5.40); WHITE BLOOD COUNT 8.1 10^3/uL (4.0-10.0)
[2019-01-29 14:10] LABS: HEMOGLOBIN A1c 6.2 %
[2019-01-29 14:13] LABS: ALBUMIN 3.3 GM/DL (3.2-5.2); ALT/SGPT 16 U/L (12-78); BILIRUBIN,TOTAL 0.8 MG/DL (0.2-1.0); BLOOD UREA NITROGEN 22 MG/DL (7-18); CALCIUM LEVEL 9.5 MG/DL (8.8-10.2); CARBON DIOXIDE LEVEL 30 MEQ/L (21-32); CHLORIDE LEVEL 107 MEQ/L (98-107); CREATININE FOR GFR 0.86 MG/DL (0.55-1.30); GLOMERULAR FILTRATION RATE > 60.0 (>32); GLUCOSE, FASTING 124 MG/DL (70-100); POTASSIUM SERUM 4.1 MEQ/L (3.5-5.1); SODIUM LEVEL 142 MEQ/L (136-145)
== END ==
LOC: M LRY 09:24
PROVIDERS: ATTEND Family Medicine
DX: N18.3 Chronic kidney disease, stage 3 (moderate) (principal); E11.22 Type 2 diabetes mellitus with diabetic chronic kidney disease

== ENCOUNTER → 2019-02-07 | Outpatient (CLI) | payer MEDICARE ==
[~2019-02-07] MED LIST changes: +OMEP1CAP73 PO; -OMEP20CA4 PO
--- NOTE | 2019-02-07 14:47 | REPMRS ---
Patient History The patient states she had a clinical breast exam in 2018. Family history of colorectal cancer at age 50 or over in mother. Took estrogen for 20 years. 3D TOMOSYNTHESIS WAS PERFORMED. Digital Woman Screen Mammo: February 07, 2019 - Exam #: [id number] Bilateral CC and MLO view(s) were taken. Technologist: Shanique Gong, Technologist Prior study comparison: February 06, 2018, bilateral digital woman screen mammo performed at [facility]. December 27, 2016, digital woman screen mammo performed at [facility]. FINDINGS: There are scattered fibroglandular densities. There has been no change in the appearance of the mammogram from the prior studies. There is a mild amount of residual fibroglandular tissue which is fairly symmetric. There is no interval development of dominant mass, architectural distortion, or clustered microcalcification suggestive of malignancy. Assessment: BI-RADS/ACR category 1 mammogram. Negative Mammogram. Recommendation Routine screening mammogram in 1 year (for women over age 40). This mammogram was interpreted with the aid of an FDA-approved computer-aided dectection system. Electronically Signed By: Suhail Samayoa MD 02/07/19 [id number]
== END ==
LOC: M WHC 13:24
PROVIDERS: ATTEND Nurse Practitioner Family
DX: Z12.31 Encounter for screening mammogram for malignant neoplasm of breast (principal); Z80.0 Family history of malignant neoplasm of digestive organs; Z92.23 Personal history of estrogen therapy
CPT/HCPCS: 77063; 77067; G0463

== ENCOUNTER → 2019-05-05 | Outpatient (REF) | payer MEDICARE | LOC: M SMT 12:54 | PROVIDERS: ATTEND Nurse Practitioner Family | DX: N39.0 Urinary tract infection, site not specified (principal); E78.2 Mixed hyperlipidemia; E11.22 Type 2 diabetes mellitus with diabetic chronic kidney disease; R60.0 Localized edema | CPT/HCPCS: 36415; 80053; 80061; 83036; 84439; 84443; 85025; 87088; 87186; G0463 ==

== ENCOUNTER → 2019-05-05 | Outpatient (CLI) | payer MEDICARE ==
[2019-05-05 13:19] LABS: BASO # 0.1 10^3/uL (0.0-0.2); BASO % 0.9 % (0.0-1.0); EOS # 0.2 10^3/uL (0.0-0.5); EOS % 3.2 % (0.0-3.0); HEMATOCRIT 43.2 % (36.0-47.0); HEMOGLOBIN 14.1 g/dl (12.0-15.5); LYMPH # 1.8 10^3/uL (1.5-5.0); LYMPH % 27.8 % (24.0-44.0); MEAN CORPUSCULAR HEMOGLOBIN 30.9 pg (27.0-33.0); MEAN CORPUSCULAR HGB CONC 32.6 g/dl (32.0-36.5); MEAN CORPUSCULAR VOLUME 94.7 fl (80.0-96.0); MONO # 0.6 10^3/uL (0.0-0.8); MONO % 8.7 % (0.0-5.0); NEUTROPHILS # 3.8 10^3/uL (1.5-8.5); NEUTROPHILS % 59.1 % (36.0-66.0); PLATELET COUNT, AUTOMATED 250 10^3/uL (150-450); RED BLOOD COUNT 4.56 10^6/uL (4.00-5.40); WHITE BLOOD COUNT 6.3 10^3/uL (4.0-10.0)
[2019-05-05 13:37] LABS: ALBUMIN 3.7 GM/DL (3.2-5.2); BILIRUBIN,TOTAL 0.5 MG/DL (0.2-1.0); CALCIUM LEVEL 9.2 MG/DL (8.8-10.2); CHOLESTEROL RISK RATIO 4.256 (<5); CREATININE FOR GFR 0.99 MG/DL (0.55-1.30); GLOMERULAR FILTRATION RATE 56.4 (>32); POTASSIUM SERUM 4.3 MEQ/L (3.5-5.1); THYROID STIMULATING HORMONE 0.646 uIU/ML (0.358-3.740); TOTAL PROTEIN 6.8 GM/DL (6.4-8.2)
[2019-05-05 14:43] LABS: HEMOGLOBIN A1c 6.5 %
== END ==
LOC: M PLALAB 10:44
PROVIDERS: ATTEND Physician Assistant
DX: E78.2 Mixed hyperlipidemia (principal); E11.22 Type 2 diabetes mellitus with diabetic chronic kidney disease; R60.0 Localized edema

== ENCOUNTER → 2019-07-29 | Outpatient (CLI) | payer MEDICARE ==
[2019-07-29 11:54] LABS: BASO # 0.1 10^3/uL (0.0-0.2); BASO % 0.8 % (0.0-1.0); EOS # 0.2 10^3/uL (0.0-0.5); EOS % 2.4 % (0.0-3.0); HEMATOCRIT 42.5 % (36.0-47.0); LYMPH % 30.8 % (24.0-44.0); MEAN CORPUSCULAR HEMOGLOBIN 30.9 pg (27.0-33.0); MEAN CORPUSCULAR HGB CONC 32.9 g/dl (32.0-36.5); MEAN CORPUSCULAR VOLUME 93.8 fl (80.0-96.0); MONO # 0.6 10^3/uL (0.0-0.8); MONO % 8.6 % (0.0-5.0); NEUTROPHILS # 3.8 10^3/uL (1.5-8.5); NEUTROPHILS % 57.1 % (36.0-66.0); PLATELET COUNT, AUTOMATED 247 10^3/uL (150-450); RED BLOOD COUNT 4.53 10^6/uL (4.00-5.40); WHITE BLOOD COUNT 6.6 10^3/uL (4.0-10.0)
[2019-07-29 12:36] LABS: HEMOGLOBIN A1c 6.1 %
[2019-07-29 12:52] LABS: ALBUMIN 3.5 GM/DL (3.2-5.2); ALT/SGPT 26 U/L (12-78); BILIRUBIN,TOTAL 0.7 MG/DL (0.2-1.0); BLOOD UREA NITROGEN 23 MG/DL (7-18); CALCIUM LEVEL 9.1 MG/DL (8.8-10.2); CARBON DIOXIDE LEVEL 26 MEQ/L (21-32); CHLORIDE LEVEL 110 MEQ/L (98-107); CHOLESTEROL LEVEL 161 MG/DL (<200); CHOLESTEROL RISK RATIO 4.128 (<5); CREATININE FOR GFR 0.78 MG/DL (0.55-1.30); FREE T4 1.04 NG/DL (0.76-1.46); GLOMERULAR FILTRATION RATE > 60.0 (>32); GLUCOSE, FASTING 114 MG/DL (70-100); HDL CHOLESTEROL 39 MG/DL (>40); LDL CHOLESTEROL 75 MG/DL (<100); NON-HDL-C 122 MG/DL; POTASSIUM SERUM 4.1 MEQ/L (3.5-5.1); SODIUM LEVEL 143 MEQ/L (136-145); THYROID STIMULATING HORMONE 0.964 uIU/ML (0.358-3.740); TRIGLYCERIDES LEVEL 237 MG/DL (<150)
== END ==
LOC: M PLALAB 09:50
PROVIDERS: ATTEND Family Medicine
DX: E11.22 Type 2 diabetes mellitus with diabetic chronic kidney disease (principal); E78.2 Mixed hyperlipidemia

== ENCOUNTER → 2019-10-15 | Outpatient (REF) | payer MEDICARE ==
[~2019-10-15] MED LIST changes: +ACET650T61 PO; -TYLE650T35 PO
[2019-10-15 17:27] LABS: APPEARANCE, URINE MANUAL CLEAR (CLEAR); COLOR, URINE MANUAL LT YELLOW (YELLOW)
[2019-10-15 17:28] LABS: BILIRUBIN, URINE MANUAL NEGATIVE (NEGATIVE); BLOOD URINE MANUAL NEGATIVE (NEGATIVE); GLUCOSE, URINE (UA) MANUAL NEGATIVE (NEGATIVE); KETONE, URINE MANUAL NEGATIVE (NEGATIVE); LEUKOCYTE ESTERASE, URINE MAN POSITIVE (NEGATIVE); NITRITE, URINE MANUAL NEGATIVE (NEGATIVE); PROTEIN, URINE MANUAL NEGATIVE (NEGATIVE); UROBILINOGEN, URINE MANUAL NORMAL (NORMAL)
[2019-10-15 18:15] LABS: BACTERIA, URINE LARGE AMOUNT; SQUAMOUS EPITHELIAL CELL URINE MOD AMOUNT /hpf (SMALL AMT); TRANSITIONAL EPI CELLS, URINE LARGE AMOUNT /hpf; WBC, URINE 40-50 /hpf (0-3)
[2019-10-15 18:16] LABS: MUCUS, URINE SMALL AMOUNT (NEGATIVE)
== END ==
LOC: M LAB REF 16:40
PROVIDERS: ATTEND Obstetrics & Gynecology
DX: N39.0 Urinary tract infection, site not specified (principal)

== ENCOUNTER → 2019-10-29 | Outpatient (CLI) | payer MEDICARE ==
[2019-10-29 17:19] LABS: BLOOD UREA NITROGEN 25 MG/DL (7-18); CALCIUM LEVEL 9.1 MG/DL (8.8-10.2); CARBON DIOXIDE LEVEL 26 MEQ/L (21-32); CHLORIDE LEVEL 111 MEQ/L (98-107); CREATININE FOR GFR 0.92 MG/DL (0.55-1.30); GLOMERULAR FILTRATION RATE > 60.0 (>32); GLUCOSE, FASTING 137 MG/DL (70-100); POTASSIUM SERUM 4.2 MEQ/L (3.5-5.1); SODIUM LEVEL 143 MEQ/L (136-145)
[2019-10-29 17:43] LABS: HEMOGLOBIN A1c 6.2 %
== END ==
LOC: M LRY 09:46
PROVIDERS: ATTEND Family Medicine
DX: R73.01 Impaired fasting glucose (principal)

== ENCOUNTER → 2020-01-27 | Outpatient (REF) | payer MEDICARE ==
[2020-01-27 17:51] LABS: APPEARANCE, URINE HAZY (CLEAR); BACTERIA, URINE AUTO NEGATIVE (NEGATIVE); BILIRUBIN, URINE AUTO NEGATIVE (NEGATIVE); BLOOD, URINE BLOOD NEGATIVE (NEGATIVE); COLOR, URINE YELLOW (YELLOW); GLUCOSE, URINE (UA) AUTO NEGATIVE (NEGATIVE); KETONE, URINE AUTO NEGATIVE (NEGATIVE); LEUKOCYTE ESTERASE, URINE AUTO TRACE (NEGATIVE); MUCUS, URINE SMALL (NEGATIVE); NITRITE, URINE AUTO NEGATIVE (NEGATIVE); PROTEIN, URINE AUTO 1+ mg/dL (NEGATIVE); RBC, URINE AUTO 1 /HPF (0-3); SPECIFIC GRAVITY URINE AUTO 1.028 (1.002-1.035); SQUAMOUS EPITHELIAL CELL UR AU 5 /HPF (0-6); UROBILINOGEN, URINE AUTO 0.2 mg/dL (0.0-2.0); WBC, URINE AUTO 6 /HPF (0-3)
== END ==
LOC: M SMT 16:50
PROVIDERS: ATTEND Nurse Practitioner Women's Health
DX: R30.0 Dysuria (principal)
CPT/HCPCS: 81001; 87086; G0463

== ENCOUNTER → 2020-02-04 | Outpatient (CLI) | payer MEDICARE ==
[2020-02-04 13:50] LABS: BASO % 0.6 % (0.0-1.0); EOS # 0.1 10^3/uL (0.0-0.5); EOS % 1.6 % (0.0-3.0); HEMATOCRIT 41.9 % (36.0-47.0); HEMOGLOBIN 13.3 g/dl (12.0-15.5); LYMPH # 2.1 10^3/uL (1.5-5.0); LYMPH % 30.7 % (24.0-44.0); MEAN CORPUSCULAR HEMOGLOBIN 30.6 pg (27.0-33.0); MEAN CORPUSCULAR HGB CONC 31.7 g/dl (32.0-36.5); MEAN CORPUSCULAR VOLUME 96.3 fl (80.0-96.0); MONO # 0.6 10^3/uL (0.0-0.8); MONO % 8.5 % (0.0-5.0); NEUTROPHILS % 58.3 % (36.0-66.0); PLATELET COUNT, AUTOMATED 239 10^3/uL (150-450); RED BLOOD COUNT 4.35 10^6/uL (4.00-5.40); WHITE BLOOD COUNT 6.9 10^3/uL (4.0-10.0)
[2020-02-04 14:14] LABS: HEMOGLOBIN A1c 6.2 %
[2020-02-04 14:48] LABS: ALBUMIN 3.5 GM/DL (3.2-5.2); BILIRUBIN,TOTAL 0.7 MG/DL (0.2-1.0); CALCIUM LEVEL 9.1 MG/DL (8.8-10.2); CHOLESTEROL RISK RATIO 3.717 (<5); CREATININE FOR GFR 0.98 MG/DL (0.55-1.30); FREE T4 0.98 NG/DL (0.76-1.46); GLOMERULAR FILTRATION RATE 56.9 (>32); POTASSIUM SERUM 4.2 MEQ/L (3.5-5.1); THYROID STIMULATING HORMONE 1.22 uIU/ML (0.358-3.740); TOTAL PROTEIN 6.9 GM/DL (6.4-8.2)
== END ==
LOC: M PLALAB 10:27
PROVIDERS: ATTEND Family Medicine
DX: E78.2 Mixed hyperlipidemia (principal); R73.03 Prediabetes

== ENCOUNTER → 2020-03-01 | Outpatient (CLI) | payer MEDICARE ==
--- NOTE | 2020-03-01 13:52 | REPMRS ---
Patient History The patient states she had a clinical breast exam in December 2019. Family history of colorectal cancer at age 50 or over in mother. Took estrogen for 20 years. 3D TOMOSYNTHESIS WAS PERFORMED. Volpara breast density b. Digital Woman Screen Mammo: March 01, 2020 - Exam #: [id number] Bilateral CC and MLO view(s) were taken. Technologist: Annalise Weeks, Technologist Prior study comparison: February 07, 2019, bilateral digital woman screen mammo performed at [facility]. February 06, 2018, bilateral digital woman screen mammo performed at [facility]. FINDINGS: There are scattered fibroglandular densities. There has been no change in the appearance of the mammogram from the prior studies. There is a mild amount of residual fibroglandular tissue which is fairly symmetric. There is no interval development of dominant mass, architectural distortion, or clustered microcalcification suggestive of malignancy. Assessment: BI-RADS/ACR category 1 mammogram. Negative Mammogram. Recommendation Routine screening mammogram in 1 year (for women over age 40). This mammogram was interpreted with the aid of an FDA-approved computer-aided dectection system. Electronically Signed By: Suhail Smaayoa MD 03/01/20 [id number]
== END ==
LOC: M WHC 13:06
PROVIDERS: ATTEND Physician Assistant
DX: Z12.31 Encounter for screening mammogram for malignant neoplasm of breast (principal); Z80.0 Family history of malignant neoplasm of digestive organs

== ENCOUNTER → 2020-06-11 | Outpatient (CLI) | payer MEDICARE ==
[2020-06-11 13:32] LABS: BLOOD UREA NITROGEN 24 MG/DL (7-18); CALCIUM LEVEL 9.3 MG/DL (8.8-10.2); CARBON DIOXIDE LEVEL 28 MEQ/L (21-32); CHLORIDE LEVEL 109 MEQ/L (98-107); CREATININE FOR GFR 0.84 MG/DL (0.55-1.30); GLOMERULAR FILTRATION RATE > 60.0 (>32); GLUCOSE, FASTING 126 MG/DL (70-100); POTASSIUM SERUM 4.2 MEQ/L (3.5-5.1); SODIUM LEVEL 142 MEQ/L (136-145)
[2020-06-11 14:09] LABS: HEMOGLOBIN A1c 6.2 %
== END ==
LOC: M PLALAB 11:18
PROVIDERS: ATTEND Physician Assistant
DX: R73.03 Prediabetes (principal)

== ENCOUNTER → 2020-07-07 | Outpatient (REF) | payer MEDICARE | LOC: M PLALAB 16:10 | PROVIDERS: ATTEND Obstetrics & Gynecology | DX: B37.3 Candidiasis of vulva and vagina (principal); Z79.899 Other long term (current) drug therapy | CPT/HCPCS: 87088; 87186; G0463 ==

== ENCOUNTER → 2020-07-27 | Outpatient (REF) | payer MEDICARE ==
[2020-07-27 18:09] LABS: APPEARANCE, URINE HAZY (CLEAR); BACTERIA, URINE AUTO NEGATIVE (NEGATIVE); BILIRUBIN, URINE AUTO NEGATIVE (NEGATIVE); BLOOD, URINE BLOOD NEGATIVE (NEGATIVE); COLOR, URINE YELLOW (YELLOW); GLUCOSE, URINE (UA) AUTO NEGATIVE (NEGATIVE); KETONE, URINE AUTO NEGATIVE (NEGATIVE); LEUKOCYTE ESTERASE, URINE AUTO 2+ (NEGATIVE); NITRITE, URINE AUTO NEGATIVE (NEGATIVE); PROTEIN, URINE AUTO NEGATIVE (NEGATIVE); RBC, URINE AUTO 0 /HPF (0-3); SPECIFIC GRAVITY URINE AUTO 1.011 (1.002-1.035); SQUAMOUS EPITHELIAL CELL UR AU 5 /HPF (0-6); UROBILINOGEN, URINE AUTO 0.2 mg/dL (0.0-2.0); WBC, URINE AUTO 7 /HPF (0-3)
== END ==
LOC: M SMT 17:21
PROVIDERS: ATTEND Nurse Practitioner Family
DX: N39.0 Urinary tract infection, site not specified (principal)
CPT/HCPCS: 81001; 87086; G0463

== ENCOUNTER → 2020-07-30 | Outpatient (REF) | payer MEDICARE ==
[2020-07-30 17:22] LABS: APPEARANCE, URINE HAZY (CLEAR); BACTERIA, URINE AUTO NEGATIVE (NEGATIVE); BILIRUBIN, URINE AUTO NEGATIVE (NEGATIVE); BLOOD, URINE BLOOD NEGATIVE (NEGATIVE); COLOR, URINE YELLOW (YELLOW); GLUCOSE, URINE (UA) AUTO NEGATIVE (NEGATIVE); KETONE, URINE AUTO NEGATIVE (NEGATIVE); LEUKOCYTE ESTERASE, URINE AUTO 2+ (NEGATIVE); MUCUS, URINE SMALL (NEGATIVE); NITRITE, URINE AUTO NEGATIVE (NEGATIVE); PROTEIN, URINE AUTO NEGATIVE (NEGATIVE); RBC, URINE AUTO 2 /HPF (0-3); SPECIFIC GRAVITY URINE AUTO 1.026 (1.002-1.035); SQUAMOUS EPITHELIAL CELL UR AU 3 /HPF (0-6); TRANSITIONAL EPITHELIAL AUTO <1 /HPF; UROBILINOGEN, URINE AUTO 0.2 mg/dL (0.0-2.0); WBC, URINE AUTO 8 /HPF (0-3)
== END ==
LOC: M SMT 17:04
PROVIDERS: ATTEND Nurse Practitioner Family
DX: N39.0 Urinary tract infection, site not specified (principal)

== ENCOUNTER → 2020-08-26 | Outpatient (REF) | payer MEDICARE ==
[~2020-08-26] MED LIST changes: +AMLO25TA PO; +COZA50TA PO; +DOXE10CA PO; +ESTR0.1C5 TOP; +GABA-282 PO; +LIDO4CR TOP; +LOSA50TA88 PO; +MECL-86 PO; -NITR100C2; +NITR100C2 PO; +NORV5TAB PO
== END ==
LOC: M SFHCWAGY 13:07
PROVIDERS: ATTEND Obstetrics & Gynecology
DX: N90.89 Other specified noninflammatory disorders of vulva and perineum (principal)

== ENCOUNTER → 2020-08-26 | Outpatient (REF) | payer MEDICARE ==
[~2020-08-26] MED LIST changes: -AMLO25TA PO; -COZA50TA PO; -DOXE10CA PO; -ESTR0.1C5 TOP; -GABA-282 PO; -LIDO4CR TOP; -LOSA50TA88 PO; -MECL-86 PO; +NITR100C2; -NITR100C2 PO; -NORV5TAB PO
== END ==
LOC: M PLALAB 10:18
PROVIDERS: ATTEND Obstetrics & Gynecology
DX: N90.89 Other specified noninflammatory disorders of vulva and perineum (principal)

== ENCOUNTER → 2020-09-07 | Outpatient (CLI) | payer MEDICARE ==
[~2020-09-07] MED LIST changes: +AMLO25TA PO; -CEFD1CAP8 PO; +CEFD300C41 PO; +COZA50TA PO; +DOXE10CA PO; +ESTR0.1C5 TOP; +GABA-282 PO; +LIDO4CR TOP; +LOSA50TA28 PO; +MECL-86 PO; +MECL1TAB31 PO; -NITR100C2; +NITR100C2 PO; +NORV5TAB PO
[2020-09-07 13:36] LABS: BASO # 0.1 10^3/uL (0.0-0.2); BASO % 0.6 % (0.0-1.0); EOS # 0.1 10^3/uL (0.0-0.5); EOS % 1.7 % (0.0-3.0); HEMOGLOBIN 12.7 g/dl (12.0-15.5); LYMPH # 2.2 10^3/uL (1.5-5.0); LYMPH % 27.6 % (24.0-44.0); MEAN CORPUSCULAR HEMOGLOBIN 31.3 pg (27.0-33.0); MEAN CORPUSCULAR HGB CONC 32.6 g/dl (32.0-36.5); MEAN CORPUSCULAR VOLUME 96.1 fl (80.0-96.0); MONO # 0.6 10^3/uL (0.0-0.8); MONO % 7.9 % (2.0-8.0); PLATELET COUNT, AUTOMATED 260 10^3/uL (150-450); RED BLOOD COUNT 4.06 10^6/uL (4.00-5.40); WHITE BLOOD COUNT 8.1 10^3/uL (4.0-10.0)
[2020-09-07 14:09] LABS: ALBUMIN 3.3 GM/DL (3.2-5.2); ALT/SGPT 21 U/L (12-78); BILIRUBIN,TOTAL 0.6 MG/DL (0.2-1.0); BLOOD UREA NITROGEN 21 MG/DL (7-18); CALCIUM LEVEL 9.4 MG/DL (8.8-10.2); CARBON DIOXIDE LEVEL 23 MEQ/L (21-32); CHLORIDE LEVEL 113 MEQ/L (98-107); CHOLESTEROL LEVEL 157 MG/DL (<200); CHOLESTEROL RISK RATIO 4.243 (<5); CREATININE FOR GFR 0.81 MG/DL (0.55-1.30); GLOMERULAR FILTRATION RATE > 60.0 (>32); GLUCOSE, FASTING 116 MG/DL (70-100); HDL CHOLESTEROL 37 MG/DL (>40); LDL CHOLESTEROL 79 MG/DL (<100); NON-HDL-C 120 MG/DL; POTASSIUM SERUM 4.3 MEQ/L (3.5-5.1); SODIUM LEVEL 143 MEQ/L (136-145); TOTAL PROTEIN 6.9 GM/DL (6.4-8.2); TRIGLYCERIDES LEVEL 203 MG/DL (<150)
== END ==
LOC: M PLALAB 10:19
PROVIDERS: ATTEND Family Medicine
DX: R73.03 Prediabetes (principal); E78.2 Mixed hyperlipidemia; N18.30 Chronic kidney disease, stage 3 unspecified

== ENCOUNTER 2020-09-08 16:03 | Inpatient (IN) | payer MEDICARE ==
[~2020-09-08] VITALS: Ht 160 cm; Wt 72.5 kg
[~2020-09-08 16:03] MED LIST changes: -AMLO25TA PO; +CEFD1CAP8 PO; -CEFD300C41 PO; -COZA50TA PO; -DOXE10CA PO; -ESTR0.1C5 TOP; -GABA-282 PO; -LIDO4CR TOP; -LOSA50TA28 PO; -MECL-86 PO; -MECL1TAB31 PO; -NORV5TAB PO
[2020-09-08] MEDS ORDERED: LOSA50TA88 PO (16:16)
[2020-09-08] MEDS ORDERED: ESTR0.1C5 TOP (16:16)
[2020-09-08] MEDS ORDERED: MECLIZINE 25 MG TABLET PO ONE (16:35)
--- NOTE | 2020-09-08 16:57 | REP ---
INDICATION: dizziness htn. COMPARISON: 05/07/2018 the latest prior FINDINGS: The technique utilized in obtaining the radiograph has magnified the cardiac silhouette and accentuated the interstitial markings. There is a new left basilar opacity partially silhouetting out the diaphragmatic surface of the left lung. This cannot be well evaluated on this portable exam. There is cardiomegaly accentuated by technique. There are chronic right basilar changes. There is interstitial fibrotic change status quo. There is no change in the osseous structures. IMPRESSION: New left basilar opacity as described above. Etiology uncertain. Contrast-enhanced CT examination of the chest is warranted. <Electronically signed by Saul Hodgson > 09/08/20 [id number]
[2020-09-08 17:08] LABS: BASO % 0.4 % (0.0-1.0); EOS # 0.1 10^3/uL (0.0-0.5); EOS % 1.3 % (0.0-3.0); HEMATOCRIT 38.7 % (36.0-47.0); HEMOGLOBIN 12.9 g/dl (12.0-15.5); LYMPH % 23.4 % (24.0-44.0); MEAN CORPUSCULAR HEMOGLOBIN 31.5 pg (27.0-33.0); MEAN CORPUSCULAR HGB CONC 33.3 g/dl (32.0-36.5); MEAN CORPUSCULAR VOLUME 94.4 fl (80.0-96.0); MONO # 0.7 10^3/uL (0.0-0.8); NEUTROPHILS # 5.7 10^3/uL (1.5-8.5); NEUTROPHILS % 66.7 % (36.0-66.0); PLATELET COUNT, AUTOMATED 252 10^3/uL (150-450); WHITE BLOOD COUNT 8.5 10^3/uL (4.0-10.0)
--- NOTE | 2020-09-08 17:29 | REPVR ---
PROCEDURE INFORMATION: Exam: CT Head Without Contrast Exam date and time: 09/08/2020 4:39 PM Age: 89 years old Clinical indication: Dizziness TECHNIQUE: Imaging protocol: Computed tomography of the head without contrast. Radiation optimization: All CT scans at this facility use at least one of these dose optimization techniques: automated exposure control; mA and/or kV adjustment per patient size (includes targeted exams where dose is matched to clinical indication); or iterative reconstruction. COMPARISON: CT Head without contrast 01/06/2018 9:45 AM FINDINGS: Brain: Image there are patchy areas of low density in the periventricular white matter unchanged since 2018 and consistent with chronic ischemic change. Cerebral ventricles: No ventriculomegaly. Paranasal sinuses: Clear paranasal sinuses. Mastoid air cells: Clear mastoid air cells. Orbital cavity: Symmetric orbits. Bones/joints: There is severe sclerosis and irregularity of the mandibular condyles bilaterally. There is no evidence of fracture. Soft tissues: There is no soft tissue swelling. IMPRESSION: No evidence of bleed. Electronically signed by: Lenard Tahpa On 09/08/2020 17:28:25 PM
[2020-09-08 17:42] LABS: BLOOD UREA NITROGEN 22 MG/DL (7-18); CALCIUM LEVEL 9.6 MG/DL (8.8-10.2); CARBON DIOXIDE LEVEL 27 MEQ/L (21-32); CHLORIDE LEVEL 110 MEQ/L (98-107); CK-MB VALUE MASS 1.2 NG/ML (<3.6); CPK CREATINE PHOSPHOKINASE 61 U/L (26-192); GLOMERULAR FILTRATION RATE > 60.0 (>32); GLUCOSE, FASTING 96 MG/DL (70-100); MB/CK RELATIVE INDEX 1.97 (< OR =4); POTASSIUM SERUM 3.9 MEQ/L (3.5-5.1); SODIUM LEVEL 142 MEQ/L (136-145); THYROID STIMULATING HORMONE 0.981 uIU/ML (0.358-3.740); TROPONIN I < 0.02 NG/ML (< 0.10)
[2020-09-08] MEDS ORDERED: LABETALOL 100MG/20ML VIAL IV STA (18:05)
[2020-09-08] MEDS ORDERED: MOM 30ML SUSPENSION UDC PO PRN (18:40)
[2020-09-08] MEDS ORDERED: ACETAMINOPHEN TAB 650MG DOSE (2X325MG) PO PRN (18:40)
[2020-09-08] MEDS ORDERED: MAALOX 30 ML SUSP *UDC PO PRN (18:40)
--- NOTE | 2020-09-08 18:58 | HPEPDOC ---
[facility] Medical History & Physical Date of Admission Sep 08, 2020 Date of Service: Sep 08, 2020 Attending Physician: DESMOND WALTERS MD History and Physical CHIEF COMPLAINT: Dizziness HISTORY OF PRESENT ILLNESS: Mrs. Crain is an 89-year-old female who presented to the ER from her primary care provider's office today with complaints of dizziness with some concern for possible stroke. She first experienced the dizziness last night when she got up to go to the bathroom. The dizziness persisted as she ambulated to the bathroom. She thought it had gone away, but was bending over in the kitchen and said it was even worse during that episode. She states the only reason she didn't follows because she was hanging onto the cabinet doors. She has never experienced this type of feeling before. She also admitted to becoming dizzy when the stretcher was laid flat in the ER. She does have hypertension and is on 3 different medications. So she did not take her diuretic yesterday because she had to go and have blood drawn for an appointment next week. She also had an appointment with a airplane rigger with a history of chronic kidney disease. She states she got a good report from the airplane rigger yesterday. She also has a history of recurrent urinary tract infections and is on prophylactic antibiotics. She has a history of chronic vaginal/vulvar pain. She was prescribed an estrogen cream which she was supposed to start tonight. She states this has been going on for quite some time and is very bothersome to her. She feels like this has been increasing her anxiety lately because the pain is constant. On initial evaluation the patients NIH score was 0. Blood pressure was 171/78, however, recheck a little over an hour later showed her blood pressure 202/88. Current systolic blood pressure at the time of evaluation was 232/80. Pulse r emained in the 60s. She was satting 94% on room air. She is afebrile. Lab results were unremarkable. CT of the head showed no acute pathology. Chest x-ray was significant for a left basilar opacity of uncertain significance. Radiology recommended a CT with contrast for further evaluation. The patient denied any shortness of breath, cough or congestion. She denied any inner ear difficulties and also denied a history of vertigo. PAST MEDICAL HISTORY: 1. Hypertension. 2. Gastroesophageal reflux disease. 3. Hyperlipidemia. 4. Chronic kidney disease, stage unknown with baseline creatinine about 0.8. 5. Uterine cancer. 6. Anxiety. 7. Depression. 8. Prediabetes. 9. Recurrent urinary tract infection on chronic nitrofurantoin. 10. Heart murmur. 11. Constipation PAST SURGICAL HISTORY: 1. Hysterectomy. 2. Cataract surgery. 3. ORIF of the right arm SOCIAL HISTORY: Tobacco use: Remote history. Quit over 50 years ago ETOH: Occasional Illicit drug use: Denies Patient lives with: Her daughter FAMILY HISTORY: Patient's mother the age of 86 with a history of colon cancer and congestive heart failure. Her father at 78 but the patient is not clear on his medical history. REVIEW OF SYSTEMS: Complete 10 point review systems is negative except as noted above PHYSICAL EXAMINATION: Patient is seen in the ER, lying on the stretcher. She is alert and oriented x 3. HEENT is WNL with no facial droop. Tongue is midline. Speech is clear and easily understood.. Neck is supple. Lungs are clear to auscultation. Heart regular rate and rhythm with murmur. Abdomen is soft, non-tender to palpation with bowel sounds positive. Extremities with good ROM and strength equal bilaterally. 1+ lower extremity edema. Pedal pulses are positive. Skin is warm and dry with no obvious rash or lesion. Neuro: grossly intact. Psych: She is pleasant and cooperative. ASSESSMENT AND PLAN: 1. Dizziness, etiology unclear with primary care concern for possible stroke versus BPPV versus hypertensive emergency. MRI ordered. CT of the head negative. Will ask physical therapy to evaluate for possible BPPV. Fall precautions. Continue home medications including metoprolol, losartan and Lasix. 2. Hypertensive emergency. Continue home medications including metoprolol, losartan and Lasix. Patient received 1 dose of labetalol in the ER. Will co ntinue hydralazine for use as needed. Will monitor with routine vital signs and continue to adjust medications as needed based on trends. 3. Left lung opacity. Patient to receive contrast with MRI. Radiology recommends CT of the chest with contrast for further evaluation. Respiratory status stable at the moment. We'll monitor closely and have oxygen available as needed. 4. Anxiety. Continue doxepin and Xanax. Continue supportive care. 5. Vulvar/vaginal pain. Estrogen cream prescribed today. Will continue that medication. Patient to follow-up as outpatient. 6. Hyperlipidemia. Continue statin. 7. DVT prophylaxis. Will add Lovenox and SKYLAR hose. CODE STATUS: CODE STATUS was discussed with the patient who desires to be considered full code. She states her daughters would act as her surrogate if she were unable to make her decisions. Patient is considered high risk for further deterioration including possible stroke. She is admitted for close observation and further evaluation and expected to remain at least one midnight. Vital Signs Vital Signs Date Time Temp Pulse Resp B/P (MAP) Pulse Ox O2 Delivery O2 Flow Rate FiO2 09/08/20 18:39 66 230/80 09/08/20 16:06 97.0 20 94 Room Air Laboratory Data Labs 24H Laboratory Tests 2 09/08/20 16:55: Immature Granulocyte % (Auto) 0.2, Neutrophils (%) (Auto) 66.7H, Lymphocytes (%) (Auto) 23.4L, Monocytes (%) (Auto) 8.0, Eosinophils (%) (Auto) 1.3, Basophils (%) (Auto) 0.4, Neutrophils # (Auto) 5.7, Lymphocytes # (Auto) 2.0, Monocytes # (Auto) 0.7, Eosinophils # (Auto) 0.1, Basophils # (Auto) 0.0, Nucleated Red Blood Cells % (auto) 0.0, Anion Gap 5L, Glomerular Filtration Rate > 60.0, Calcium Level 9.6, Total Creatine Kinase 61, Creatine Kinase MB 1.2, Creatine Kinase MB Relative Index 1.97, Troponin I < 0.02, Thyroid Stimulating Hormone (TSH) 0.981, Free Thyroxine 0.90 09/08/20 17:13: POC Glucose (Misc Panel) 98, POC Sodium (Misc Panel) 143, POC Potassium (Misc Panel) 3.8, POC Chloride (Misc Panel) 106, POC Total CO2 (Misc Panel) 23.0, POC Blood Urea Nitrogen (Misc Panel 22, POC Ionized Calcium (Misc Panel) 5.2, POC Creatinine (Misc Panel) 0.9, POC Hematocrit (Misc Panel) 41.0 CBC/BMP Laboratory Tests 09/08/20 16:55 Home Medications Scheduled Acetaminophen (Tylenol Arthritis) 650 Mg Tab, 1,300 MG PO DAILY Alprazolam (Alprazolam) 0.25 Mg Tab, 0.5 MG PO QHS Doxepin HCl (Doxepin HCl) 25 Mg Cap, 10 MG PO QHS Furosemide (Furosemide) 20 Mg Tab, 20 MG PO DAILY Gabapentin (Gabapentin) 100 Mg Cap, 400 MG PO BID Losartan Potassium (Losartan Potassium) 50 Mg Tablet, 1 TAB PO DAILY Metoprolol Succinate (Metoprolol Succinate) 50 Mg Tab, 50 MG PO DAILY Simvastatin (Simvastatin) 20 Mg Tab, 20 MG PO QHS Miscellaneous Medications Estradiol (Estradiol) 42.5 Gm Cream.appl Nitrofurantoin Monohyd/M-Cryst (Nitrofurantoin [place]-Mcr 100 mg) 100 Mg Capsule Allergies Coded Allergies: Sulfa (Sulfonamide Antibiotics) (Verified Allergy, Unknown, 10/19/18) A-FIB/CHADSVASC A-FIB History Current/History of A-Fib/PAF?: No MARCELA MOSS Sep 08, 2020 18:58
[2020-09-08] MEDS ORDERED: DOXE10CA PO (19:19)
[2020-09-08 20:20] LABS: RSV AMPLIFICATION NEGATIVE (NEGATIVE)
--- NOTE | 2020-09-08 20:55 | ECGEPIP ---
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
[2020-09-08] MEDS ORDERED: DOXEPIN 25 MG CAP PO SCH (21:00)
[2020-09-08] MEDS ORDERED: DOXEPIN PO SCH (21:00)
[2020-09-08] MEDS ORDERED: ESTRADIOL 42.5 GM TOP SCH (21:00)
--- NOTE | 2020-09-08 21:13 | REPVR ---
PROCEDURE INFORMATION: Exam: MR Head Without Contrast Exam date and time: 09/08/2020 8:25 PM Age: 89 years old Clinical indication: Dizziness; Additional info: CVA TECHNIQUE: Imaging protocol: MR of the head without contrast. COMPARISON: CT Head without contrast 09/08/2020 4:33 PM FINDINGS: Brain: There is no restricted diffusion to suggest acute infarction. No acute intracranial hemorrhage. Increased signal intensity of the deep and subcortical white matter on the FLAIR and T2 weighted sequences is most consistent with microangiopathy. Cerebral ventricles: The ventricles appear mildly enlarged, but not out of proportion to the degree of parenchymal volume loss. There is probable iron deposition in the basal ganglia. No prior microhemorrhages. Bones/joints: Unremarkable. Paranasal sinuses: Normal as visualized. No acute sinusitis. Mastoid air cells: Normal as visualized. No mastoid effusion. Orbital cavity: Unremarkable. Soft tissues: Unremarkable. Other vasculature: Flow is seen in the major intracerebral arteries. IMPRESSION: No acute cerebral infarction or intracranial hemorrhage. Electronically signed by: Evelin Hay On 09/08/2020 21:12:56 PM
--- NOTE | 2020-09-08 21:17 | REPVR ---
PROCEDURE INFORMATION: Exam: MRA Head Without Contrast; Arteriography Exam date and time: 09/08/2020 8:25 PM Age: 89 years old Clinical indication: Vertigo; Patient HX: Dizzy; Additional info: CVA TECHNIQUE: Imaging protocol: Magnetic resonance angiography head without contrast. Exam focused on the arteries. COMPARISON: CT Head without contrast 09/08/2020 4:33 PM FINDINGS: ANTERIOR CIRCULATION: Right internal carotid artery: Intracranial segment is patent with no significant stenosis. No aneurysm. Right middle cerebral artery: No occlusion or significant stenosis. No aneurysm. Right anterior cerebral artery: No occlusion or significant stenosis. No aneurysm. Left internal carotid artery: Intracranial segment is patent with no significant stenosis. No aneurysm. Left middle cerebral artery: No occlusion or significant stenosis. No aneurysm. Left anterior cerebral artery: The left V4 segment appears to end in PICA. POSTERIOR CIRCULATION: Right vertebral artery: The right vertebral artery is dominant and constitutes the basilar artery. Left vertebral artery: No occlusion or significant stenosis. No aneurysm. Basilar artery: No occlusion or significant stenosis. No aneurysm. Right posterior cerebral artery: There is origin of the right posterior cerebral artery with partial constitution from the basilar artery. Left posterior cerebral artery: There is origin of the left posterior cerebral artery with partial constitution from the basilar artery. IMPRESSION: No acute arterial occlusion. Electronically signed by: Evelin Hay On 09/08/2020 21:17:00 PM
[2020-09-08 21:40] VITALS: BP 140/60
[2020-09-08] MEDS: GABAPENTIN 100 MG CAP PO SCH (22:42)
[2020-09-08] MEDS: ALPRAZolam 0.25 MG TAB PO SCH (22:42)
[2020-09-08] MEDS: ACETAMINOPHEN 650MG ER TAB (TYLENOL ARTHRITIS) PO SCH (23:04)
[2020-09-09 00:25] VITALS: BP 140/50
[2020-09-09 04:00] VITALS: BP 148/66
[2020-09-09 06:10] LABS: HEMATOCRIT 36.8 % (36.0-47.0); HEMOGLOBIN 12.2 g/dl (12.0-15.5); MEAN CORPUSCULAR HEMOGLOBIN 31.3 pg (27.0-33.0); MEAN CORPUSCULAR HGB CONC 33.2 g/dl (32.0-36.5); MEAN CORPUSCULAR VOLUME 94.4 fl (80.0-96.0); PLATELET COUNT, AUTOMATED 243 10^3/uL (150-450); WHITE BLOOD COUNT 6.9 10^3/uL (4.0-10.0)
[2020-09-09 06:30] LABS: BLOOD UREA NITROGEN 21 MG/DL (7-18); CALCIUM LEVEL 8.7 MG/DL (8.8-10.2); CARBON DIOXIDE LEVEL 24 MEQ/L (21-32); CHLORIDE LEVEL 110 MEQ/L (98-107); GLOMERULAR FILTRATION RATE > 60.0 (>32); GLUCOSE, FASTING 99 MG/DL (70-100); MAGNESIUM LEVEL 2.2 MG/DL (1.8-2.4); POTASSIUM SERUM 3.8 MEQ/L (3.5-5.1); SODIUM LEVEL 140 MEQ/L (136-145)
[2020-09-09 08:00] VITALS: BP 164/74
[2020-09-09] MEDS: ACETAMINOPHEN 650MG ER TAB (TYLENOL ARTHRITIS) PO SCH ×2 (08:52→20:59)
[2020-09-09] MEDS: MECLIZINE 25 MG TABLET PO SCH ×3 (08:52→21:01)
[2020-09-09] MEDS: NITROFURANTOIN (MACROBID) 100 MG CAP PO SCH (08:52)
[2020-09-09] MEDS: ENOXAPARIN 40MG/0.4ML SYRINGE (J1650 PER 10MG) SC SCH (08:52)
[2020-09-09] MEDS: FUROSEMIDE 20 MG TAB PO SCH (08:53)
[2020-09-09] MEDS: SIMVASTATIN 20 MG TAB PO SCH (08:53)
[2020-09-09] MEDS: GABAPENTIN 100 MG CAP PO SCH ×2 (08:53→21:01)
[2020-09-09] MEDS: LOSARTAN 50MG TABLET PO SCH (08:54)
[2020-09-09] MEDS: METOPROLOL SUCC (TopROL XL) 50MG **XL** TAB PO SCH (08:54)
[2020-09-09 12:00] VITALS: BP 146/66
--- NOTE | 2020-09-09 12:29 | IPNPDOC ---
Subjective Date Seen The patient was seen on 09/09/20. Subjective Chief Complaint/HPI Mrs. Crain is an 89 year old female with GERD, depression, and prediabetes who presents with dizziness. Patient had MRI last night which was negative for CVA. This morning, saw patient with physical therapist. Patient feels wobbly and unsteady on her feet. Pending recommendations from PT. Otherwise, will start patient on meclizine. Objective Physical Examination General Exam: Positive: Alert, Cooperative Eye Exam: Negative: Sclera icteric ENT Exam: Positive: Atraumatic Neck Exam: Positive: Supple Chest Exam: Positive: Clear to auscultation Heart Exam: Positive: Tachycardic, Regular Rhythm Abdomen Exam: Positive: Normal bowel sounds, Soft; Negative: Tenderness Extremity Exam: Positive: Edema (mild bilateral pitting edema) Neuro Exam: Positive: Normal Speech Psych Exam: Positive: Mental status NL, Mood NL Assessment /Plan Assessment Mrs. Crain is an 89 year old female with GERD, depression, and prediabetes who presents with dizziness. MRI negative for CVA. This is most likely peripheral vertigo. Will order meclizine. Otherwise, pending recommendations from PT. Plan/VTE VTE Prophylaxis Ordered?: Yes Plan 1. Dizziness -Possibly peripheral etiology or due to hypertensive urgency -MRI head negative for CVA -Meclizine started -Pending recommendations from PT 2. Hypertensive urgency -Improved -Monitor blood pressure -Continue losartan, metoprolol succinate, and furosemide 3. Left lung opacity -Seen on CXR -Ordering CT chest with contrast 4. Anxiety/depression -Continue alprazolam 5. Hyperlipidemia -Continue simvastatin 6. History of recurrent UTI -Continue prophylactic nitrofurantoin 7. DVT ppx -Lovenox Disposition: Pending CT results and PT recommendations. VS, I&O, 24H, Fishbone Vital Signs/I&O Vital Signs Date Time Temp Pulse Resp B/P (MAP) Pulse Ox O2 Delivery O2 Flow Rate FiO2 09/09/20 08:54 106 148/66 09/09/20 08:00 98.1 19 93 Room Air I&O- Last 24 Hours up to 6 AM 09/09/20 06:00 Intake Total 0 ml Balance 0 ml Laboratory Data 24H LABS Laboratory Tests 2 09/08/20 16:55: Immature Granulocyte % (Auto) 0.2, Neutrophils (%) (Auto) 66.7H, Lymphocytes (%) (Auto) 23.4L, Monocytes (%) (Auto) 8.0, Eosinophils (%) (Auto) 1.3, Basophils (%) (Auto) 0.4, Neutrophils # (Auto) 5.7, Lymphocytes # (Auto) 2.0, Monocytes # (Auto) 0.7, Eosinophils # (Auto) 0.1, Basophils # (Auto) 0.0, Nucleated Red Blood Cells % (auto) 0.0, Anion Gap 5L, Glomerular Filtration Rate > 60.0, Calcium Level 9.6, Total Creatine Kinase 61, Creatine Kinase MB 1.2, Creatine Kinase MB Relative Index 1.97, Troponin I < 0.02, Thyroid Stimulating Hormone (TSH) 0.981, Free Thyroxine 0.90 09/08/20 17:13: POC Glucose (Misc Panel) 98, POC Sodium (Misc Panel) 143, POC Potassium (Misc Panel) 3.8, POC Chloride (Misc Panel) 106, POC Total CO2 (Misc Panel) 23.0, POC Blood Urea Nitrogen (Misc Panel 22, POC Ionized Calcium (Misc Panel) 5.2, POC Creatinine (Misc Panel) 0.9, POC Hematocrit (Misc Panel) 41.0 09/08/20 18:42: Coronavirus (COVID-19)(PCR) NEGATIVE, Influenza Type A (RT-PCR) NEGATIVE, I nfluenza Type B (RT-PCR) NEGATIVE, Respiratory Syncytial Virus (PCR) NEGATIVE 09/09/20 05:48: Nucleated Red Blood Cells % (auto) 0.0, Anion Gap 6L, Glomerular Filtration Rate > 60.0, Calcium Level 8.7L, Magnesium Level 2.2 CBC/BMP Laboratory Tests 09/08/20 16:55 09/09/20 05:48 GRAYSON KEARNEY DO Sep 09, 2020 12:29
[2020-09-09] MEDS ORDERED: ISOVUE-370 76% 100ML VIAL As Ordered ONE (12:36)
--- NOTE | 2020-09-09 13:27 | REP ---
INDICATION: CXR demonstrates left upper opacity. COMPARISON: Comparison chest x-ray September 08, 2020 showed a new opacity in the left base.. TECHNIQUE: Helical scanning is acquired following the intravenous injection of 75 mL of Isovue 370. 3 mm axial images are generated. Coronal and sagittal MPR and coronal MIP images are provided. FINDINGS: Preliminary digital golf club head inspector radiograph demonstrates cardiomegaly. On axial CT images there is evidence of a posteriorly situated defect in the left hemidiaphragm through which a small quantity of abdominal fat is protruding into the left base. This counts for the pleural based opacity seen on current chest x-ray. There is some adjacent subsegmental atelectasis in the left lower lobe. No pleural effusion is seen. Lung lomax are otherwise clear. No infiltrate or mass is observed. There is mild linear fibrosis in the left upper lobe anteriorly. There is some vascular calcification. Heart is enlarged. There appears to be left ventricular hypertrophy concentrically no pleural or pericardial effusion is seen. No bony destructive lesion is appreciated. There is good opacification of the pulmonary arterial tree and the thoracic aorta and no filling defect is seen to suggest aneurysm, dissection, or pulmonary embolus. There is a sliding-type hiatal hernia and fatty infiltration of the liver is seen. There is a cyst in the right kidney at the bottom of the imaging field of view measuring up tor 5.9 cm in diameter. This is not completely included in the field of view. Normal adrenal glands are observed. IMPRESSION: 1. Small Bochdalek's hernia posterior aspect left hemidiaphragm transmitting some abdominal fat. This accounts for the pleural opacity on chest x-ray. 2. Concentric left ventricular hypertrophy 3. Sliding-type hiatal hernia. 4. Fatty infiltration of the liver. <Electronically signed by Saul Hillman > 09/09/20 [id number]
[2020-09-09 16:00] VITALS: BP 154/76
[2020-09-09] MEDS: ALPRAZolam 0.25 MG TAB PO SCH (20:59)
[2020-09-09] MEDS ORDERED: ESTRADIOL 42.5 GM TOP SCH (21:00)
[2020-09-09 23:31] VITALS: BP 159/64
[2020-09-10 06:33] LABS: HEMATOCRIT 37.3 % (36.0-47.0); HEMOGLOBIN 12.4 g/dl (12.0-15.5); MEAN CORPUSCULAR HEMOGLOBIN 31.1 pg (27.0-33.0); MEAN CORPUSCULAR HGB CONC 33.2 g/dl (32.0-36.5); MEAN CORPUSCULAR VOLUME 93.5 fl (80.0-96.0); PLATELET COUNT, AUTOMATED 253 10^3/uL (150-450); RED BLOOD COUNT 3.99 10^6/uL (4.00-5.40); WHITE BLOOD COUNT 6.6 10^3/uL (4.0-10.0)
[2020-09-10 06:41] VITALS: BP 160/67
[2020-09-10 07:01] LABS: BLOOD UREA NITROGEN 29 MG/DL (7-18); CALCIUM LEVEL 8.8 MG/DL (8.8-10.2); CARBON DIOXIDE LEVEL 25 MEQ/L (21-32); CHLORIDE LEVEL 112 MEQ/L (98-107); CREATININE FOR GFR 0.79 MG/DL (0.55-1.30); GLOMERULAR FILTRATION RATE > 60.0 (>32); GLUCOSE, FASTING 110 MG/DL (70-100); POTASSIUM SERUM 3.8 MEQ/L (3.5-5.1); SODIUM LEVEL 143 MEQ/L (136-145)
[2020-09-10] MEDS ORDERED: DOCUSATE SODIUM 100MG CAPSULE PO SCH (09:00)
[2020-09-10] MEDS: NITROFURANTOIN (MACROBID) 100 MG CAP PO SCH (09:52)
[2020-09-10] MEDS: ENOXAPARIN 40MG/0.4ML SYRINGE (J1650 PER 10MG) SC SCH (09:52)
[2020-09-10] MEDS: GABAPENTIN 100 MG CAP PO SCH (09:53)
[2020-09-10 09:54] VITALS: BP 160/67
[2020-09-10] MEDS: METOPROLOL SUCC (TopROL XL) 50MG **XL** TAB PO SCH (09:54)
[2020-09-10] MEDS: LOSARTAN 50MG TABLET PO SCH (09:54)
[2020-09-10] MEDS: ACETAMINOPHEN 650MG ER TAB (TYLENOL ARTHRITIS) PO SCH (09:55)
[2020-09-10] MEDS: MECLIZINE 25 MG TABLET PO SCH (09:55)
[2020-09-10] MEDS: SIMVASTATIN 20 MG TAB PO SCH (09:56)
[2020-09-10] MEDS: FUROSEMIDE 20 MG TAB PO SCH (09:56)
[2020-09-10] MEDS ORDERED: MECL-86 PO (10:33)
[2020-09-10] MEDS ORDERED: AMLO25TA PO (10:33)
[2020-09-10] MEDS ORDERED: MOM 30ML SUSPENSION UDC PO ONE (12:00)
--- NOTE | 2020-09-10 20:03 | DS.PDOC ---
Discharge Summary General Date of Admission Sep 08, 2020 Date of Discharge Sep 10, 2020 Discharge Summary PROCEDURES PERFORMED DURING STAY: None ADMITTING DIAGNOSES: 1. Dizziness/Unstable gait 2. Hypertensive urgency 3. Left lung opacity 4. Anxiety/Depression 5. Hyperlipidemia 6. History of recurrent UTI DISCHARGE DIAGNOSES: 1. Dizziness/Unstable gait 2. Hypertensive urgency 3. Small Bochdalek's hernia 4. Anxiety/Depression 5. Hyperlipidemia 6. History of recurrent UTI COMPLICATIONS/CHIEF COMPLAINT: Dizziness, Hypertensive Emergency. HISTORY OF PRESENT ILLNESS: Copied from admitting provider's H&P " Mrs. Crain is an 89-year-old female who presented to the ER from her primary care provider's office today with complaints of dizziness with some concern for possible stroke. She first experienced the dizziness last night when she got up to go to the bathroom. The dizziness persisted as she ambulated to the bathroom. She thought it had gone away, but was bending over in the kitchen and said it was even worse during that episode. She states the only reason she didn't fol lows because she was hanging onto the cabinet doors. She has never experienced this type of feeling before. She also admitted to becoming dizzy when the stretcher was laid flat in the ER. She does have hypertension and is on 3 different medications. So she did not take her diuretic yesterday because she had to go and have blood drawn for an appointment next week. She also had an appointment with a retail department reset with a history of chronic kidney disease. She states she got a good report from the retail department reset yesterday. She also has a history of recurrent urinary tract infections and is on prophylactic antibiotics. She has a history of chronic vaginal/vulvar pain. She was prescribed an estrogen cream which she was supposed to start tonight. She states this has been going on for quite some time and is very bothersome to her. She feels like this has been increasing her anxiety lately because the pain is constant. On initial evaluation the patients NIH score was 0. Blood pressure was 171/78, however, recheck a little over an hour later showed her blood pressure 202/88. Current systolic blood pressure at the time of evaluation was 232/80. Pulse remained in the 60s. She was satting 94% on room air. She is afebrile. Lab results were unremarkable. CT of the head showed no acute pathology. Chest x-ray was significant for a left basilar opacity of uncertain significance. Radiology recommended a CT with contrast for further evaluation. The patient denied any shortness of breath, cough or congestion. She denied any inner ear difficulties and also denied a history of vertigo. " HOSPITAL COURSE: Patient's MRI and MRA of head was negative for CVA or occlusion. Patient's vertigo improved, but she was still unsteady on her feet. Patient is not yet at baseline. Per daughter, patient used to be very independent and was able to care fo self without issue. Patient was screened for ARU and was accepted. Otherwise, a CT angio of chest was obtained for left lower opacity. Demonstrated a left small Bochdalek's hernia. I discussed it with her and she declined the idea of trying to repair the hernia. It has not caused her any problems all of these years. This morning, she was feeling better. Denies chest pain or dyspnea. She felt ready for rehab and was subsequently discharged to rehab. DISCHARGE MEDICATIONS: Please see below. ALLERGIES: Please see below. PHYSICAL EXAMINATION ON DISCHARGE: VITAL SIGNS: Please see below. GENERAL: Comfortable, in no apparent distress HEENT: Head normocephalic, atraumatic NECK: Supple CARDIOVASCULAR EXAMINATION: Regular rate and rhythm RESPIRATORY EXAMINATION: Lungs clear to auscultation bilaterally ABDOMINAL EXAMINATION: Soft, non-tender, normal bowel sounds SKIN: Warm and dry NEUROLOGICAL EXAMINATION: CN 3-12 grossly intact PSYCHIATRIC EXAMINATION: Normal mood and affect LABORATORY DATA: Please see below. IMAGING: Radiologist interpretation MRI brain No acute cerebral infarction or intracranial hemorrhage. MRA head No acute arterial occlusion. CT chest with contrast 1. Small Bochdalek's hernia posterior aspect left hemidiaphragm transmitting some abdominal fat. This accounts for the pleural opacity on chest x-ray. 2. Concentric left ventricular hypertrophy 3. Sliding-type hiatal hernia. 4. Fatty infiltration of the liver. PROGNOSIS: Good ACTIVITY: As tolerated. DIET: Low fat, low cholesterol DISCHARGE PLAN: ARU DISPOSITION: 62 D/T Rehab Facility. DISCHARGE INSTRUCTIONS: 1. Follow up with PCP within 1 week of discharge from ARU DISCHARGE CONDITION: Stable Total time spent on discharge planning, discharge summary, and medication reconciliation: 45 minutes Vital Signs/I&Os Vital Signs Date Time Temp Pulse Resp B/P (MAP) Pulse Ox O2 Delivery O2 Flow Rate FiO2 7/16/21 09:54 73 160/67 09/10/20 06:41 97.6 20 97 Room Air I&O- Last 24 Hours up to 6 AM 09/10/20 06:00 Intake Total 840 ml Output Total 0 ml Balance 840 ml Laboratory Data Labs 24H Laboratory Tests 2 09/10/20 05:55: Nucleated Red Blood Cells % (auto) 0.0, Anion Gap 6L, Glomerular Filtration Rate > 60.0, Calcium Level 8.8 CBC/BMP Laboratory Tests 09/10/20 05:55 Discharge Medications Scheduled Acetaminophen (Tylenol Arthritis) 650 Mg Tab, 1,300 MG PO BID, (Reported) Alprazolam (Alprazolam) 0.25 Mg Tab, 0.5 MG PO QHS, (Reported) Amlodipine Besylate (Amlodipine Besylate) 2.5 Mg Tablet, 2.5 MG PO QHS Doxepin HCl (Doxepin HCl) 10 Mg Capsule, 10 MG PO QHS, (Reported) Estradiol (Estradiol) 42.5 Gm Cream.appl, 1 DOSE TOP QHS, (Reported) APPLY A NICKEL SIZE AMOUNT TO VULVAR AREA Furosemide (Furosemide) 20 Mg Tab, 20 MG PO DAILY, (Reported) Gabapentin (Gabapentin) 100 Mg Cap, 200 MG PO BID, (Reported) Losartan Potassium (Losartan Potassium) 50 Mg Tablet, 50 MG PO DAILY, (Reported) Meclizine HCl (Meclizine HCl) 25 Mg Tablet, 25 MG PO TID Metoprolol Succinate (Metoprolol Succinate) 50 Mg Tab, 50 MG PO DAILY, (Reported) Nitrofurantoin Monohyd/M-Cryst (Nitrofurantoin Randolph-Mcr 100 mg) 100 Mg Capsule, 100 MG PO DAILY, (Reported) Simvastatin (Simvastatin) 20 Mg Tab, 20 MG PO DAILY, (Reported) Allergies Coded Allergies: Sulfa (Sulfonamide Antibiotics) (Verified Allergy, Unknown, 10/19/18) GRAYSON KEARNEY DO Sep 10, 2020 20:02
== END 2020-09-10 15:30 | DRG 304 ==
LOC: M ED 16:03 → M ED INP 16:04 → M PCU 22:00 → M MS5PR 09-09 23:15 → OBSVTOIN 09-10 10:26 → M PM&R 09-10 15:35 → M MS5PR 09-10 15:35
PROVIDERS: ADMIT Internal Medicine; ATTEND Internal Medicine
DX: I16.0 Hypertensive urgency (principal); Q79.0 Congenital diaphragmatic hernia; R42 Dizziness and giddiness; F41.9 Anxiety disorder, unspecified; F32.9 Major depressive disorder, single episode, unspecified; E78.5 Hyperlipidemia, unspecified; Z79.899 Other long term (current) drug therapy; Z88.2 Allergy status to sulfonamides; K21.9 Gastro-esophageal reflux disease without esophagitis; N18.9 Chronic kidney disease, unspecified; Z85.42 Personal history of malignant neoplasm of other parts of uterus

== ENCOUNTER 2020-09-10 11:20 | Inpatient (IN) | payer MEDICARE ==
[~2020-09-10] VITALS: Ht 154.9 cm; Wt 70.2 kg
[~2020-09-10 11:20] MED LIST changes: +AMLO25TA PO; +DOXE10CA PO; +ESTR0.1C5 TOP; +LOSA50TA88 PO; +MECL-86 PO
[2020-09-10] MEDS ORDERED: BISACODYL 10 MG SUPP PR PRN (12:05)
--- NOTE | 2020-09-10 12:20 | HPEPDOC ---
[facility] [employer] Note DATE OF ADMISSION: 09-10-20 DATE OF SERVICE: 09-10-20 TIME OF ADMISSION: Please refer to physician's admission order. SOURCE OF ADMISSION INFORMATION: record and patient CHIEF COMPLAINT: vertigo HISTORY OF PRESENT ILLNESS: 89F pmh HTN, GERD, CKD, HLD, Uterine cancer, recurrent UTIs on macrobid, chronic vulvar/vaginal pain, depression/anxiety presented to [facility] ED on 09-08-20 complaining of dizziness. On admission she was found to be in hypertensive urgency with sBP 200s and saturating 94%. Head CT was negative for bleed and MRI was performed showing, No acute intracranial hemorrhage. Increased signal intensity of the deep and subcortical white matter on the FLAIR and T2 weighted sequences is most consistent with microangiopathy. MRA brain was also negative for significant intracranial stenosis. Given her low 02 levels, CXR was performed showing New left basilar opacity and follow-up chest CT showed, Small Bochdalek's hernia posterior aspect left hemidiaphragm transmitting some abdominal fat. This accounts for the pleural opacity on chest x-ray. Stroke was ruled out and her blood pressures were controlled with various blood pressure medications. Her vertigo was treated with meclizine and she was continued on macrobid for her recurrent UTIs. Patient was found to have mobility impairments and found to be unsteady on her feet, her family requested she take the opportunity to improve her home ADL management and was therefore deemed appropriate for discharge to ARU on 09-10-20. REVIEW OF SYSTEMS: The following is a completed review of systems and has been reviewed. Review of systems otherwise unremarkable. PAIN: Patient self reports +chronic vulvar pain EYES: No recent vision changes EARS, NOSE, & THROAT: No throat pain, or dysphagia, or rhinorrhea CARDIOVASCULAR: Denies chest pain or palpitations PULMONARY: Denies shortness of breath GASTROINTESTINAL: Denies constipation/diarrhea GENITOURINARY: +dysuria MUSCULOSKELETAL:generalized weakness NEUROLOGICAL:denies paresthesias or tremors HEMATOLOGICAL: denies easy bruising SKIN: denies rash PSYCHIATRIC: Unremarkable All other review of systems found to be negative. PAST MEDICAL HISTORY: as per HPI PAST SURGICAL HISTORY: ORIF right arm, cataract surgery, hysterectomy ALLERGIES: Please see below. MEDICATIONS: Please see below. FAMILY HISTORY: Colon cancer, CHF SOCIAL HISTORY:Former smoker, occasional ETOH, no illicit drugs DIET: low sodium PHYSICAL EXAMINATION: VITAL SIGNS: Please see below. GENERAL: Pleasant and cooperative. No acute distress. HEENT: PERRL. Extraocular movements intact. Clear conjunctiva CARDIOVASCULAR: Regular rate and rhythm. No murmurs, rubs, or gallops LUNGS: Clear to auscultation bilaterally. No wheezes. No rhonchi ABDOMEN: Soft, nontender, nondistended. Positive bowel sounds. Normal active bowel sounds NEUROLOGICAL: Alert and oriented times three. Cranial nerves II through XII grossly intact. Sensation grossly intact. EXTREMITIES: 5-\5 strength bilateral upper extremities. 5-\5 strength right lower extremity. 5-/5 strength in left lower extremity. LABORATORY DATA: Please see below. IMAGING: Imaging documentation personally reviewed by record FUNCTIONAL STATUS: Premorbid: Independent with all activities of daily life as well as mobility On Admission: Contact guard for functional transfers, ambulation GOALS: Mod-I for bed mobility, functional transfers, ambulation community distances, high level ADLs including business unit controller ASSESSMENT:89-year-old F with past medical history of HTN who presents status post hypertensive urgency with vertigo contributing to unsteady gait PLAN: 1. Rehab- PT/OT advance mobility and ADLs, strengthen/stretch/maintain ROM all 4l limbs, vestibular eval 2. Neuro- vertigo possibly due to BPV, MRI and CTH negative for stroke or significant intracranial stenosis- Meclizine ordered -monitor for further neuro decline 3. Cardiac-HTN with recent HTN urgency, c/u BP meds, additional hydralazine ordered with holding parameters -HLD c/u statin -CHF? on lasix, daily weights -medicine consulted to assist in overall management 4. Renal- hx of CKD, will monitor and consider renal consult if needed 5. - recurrent UTIs on macrobid -will order UA/Ucx look for possible yeast -chronic vulvar pain on estradiol cream, sitz baths ordered 6. DVT ppx- lovenox 7. GI ppx- protonix 8. Pain- tylenol and gabapentin 9. Psych-anxiety/depresion c/u xanax POST ADMISSION PHYSICIAN EVALUATION: Medical and functional status: Description of medical status, medical assessment: As above. Rehabilitation diagnosis and current and prior cold morbid medical conditions as above. Risk of complications and plans to mitigate them as above. Description of functional status current status is as above. Prior status as above. Status compared to preadmission: There are no clinically significant differences between the patient's current status and the information described on the preadmission screening document. Treatment plan anticipated: Treatment plan is as described above. Required disciplines including physical therapy, occupational therapy, others as noted above Intensity of services: 3 hours a day,6 days a week. Special considerations: There are no specific special or safety considerations that would likely preclude immediate implementation of an intensive rehabilitation program or subsequently influence the plan of care. ATTESTATION: Considering all the information above, it is my best judgment that this patient requires intensive rehabilitation therapy as described above and an inpatient hospital environment due to the complexity of nursing, medical, and rehabilitation needs required by the patient. Furthermore, this patient can reasonably be expected to participate in an benefit from an inpatient rehab ilitation stay with an interdisciplinary team approach to the delivery of rehabilitation care under the direction and supervision of rehabilitation physician. PROGNOSIS: Excellent. ESTIMATED LENGTH OF STAY:7-10 days. PROJECTED DISCHARGE DESTINATION: Home with family support and any durable medical equipment required to increase functional safety and mobility TIME SPENT COUNSELING AND COORDINATING INITIAL CARE: Greater than 70 minutes. Vital Signs Vital Signs Date Time Temp Pulse Resp B/P (MAP) Pulse Ox O2 Delivery O2 Flow Rate FiO2 09/10/20 15:55 18 09/10/20 15:55 98.5 62 144/66 (92) 96 Room Air Home Medications Scheduled Acetaminophen (Tylenol Arthritis) 650 Mg Tab, 1,300 MG PO BID, (Reported) Alprazolam (Alprazolam) 0.25 Mg Tab, 0.5 MG PO QHS, (Reported) Amlodipine Besylate (Amlodipine Besylate) 2.5 Mg Tablet, 2.5 MG PO QHS Doxepin HCl (Doxepin HCl) 10 Mg Capsule, 10 MG PO QHS, (Reported) Estradiol (Estradiol) 42.5 Gm Cream.appl, 1 DOSE TOP QHS, (Reported) APPLY A NICKEL SIZE AMOUNT TO VULVAR AREA Furosemide (Furosemide) 20 Mg Tab, 20 MG PO DAILY, (Reported) Gabapentin (Gabapentin) 100 Mg Cap, 200 MG PO BID, (Reported) Losartan Potassium (Losartan Potassium) 50 Mg Tablet, 50 MG PO DAILY, (Reported) Meclizine HCl (Meclizine HCl) 25 Mg Tablet, 25 MG PO TID Metoprolol Succinate (Metoprolol Succinate) 50 Mg Tab, 50 MG PO DAILY, (Reported) Nitrofurantoin Monohyd/M-Cryst (Nitrofurantoin [place]-Mcr 100 mg) 100 Mg Capsule, 100 MG PO DAILY, (Reported) Simvastatin (Simvastatin) 20 Mg Tab, 20 MG PO DAILY, (Reported) Allergies Coded Allergies: Sulfa (Sulfonamide Antibiotics) (Verified Allergy, Unknown, 10/19/18) A-FIB/CHADSVASC A-FIB History Current/History of A-Fib/PAF?: No Current PO Anticoag Therapy: No TAWANDA LOAIZA MD Sep 10, 2020 12:20
[2020-09-10 15:55] VITALS: BP 144/66
[2020-09-10] MEDS: REMEDY PHYTOPLEX Z-GUARD PASTE 113GM TUBE (FROM STOREROOM PRODUCT) TOP SCH ×2 (16:00→20:32)
[2020-09-10] MEDS: MECLIZINE 25 MG TABLET PO SCH ×2 (17:24→20:26)
[2020-09-10] MEDS: **hydrALAZINE HCL** 25 MG TAB PO SCH (17:25)
[2020-09-10 20:00] VITALS: BP 148/66
[2020-09-10] MEDS: DOCUSATE SODIUM 100MG CAPSULE PO SCH (20:25)
[2020-09-10] MEDS: PREPARATION H SUPP (HEMORRHOID) PR SCH (20:25)
[2020-09-10] MEDS: SENNA 8.6 MG TAB (SENOKOT) PO SCH (20:26)
[2020-09-10] MEDS: ALPRAZolam 0.5 MG TAB PO SCH (20:26)
[2020-09-10] MEDS: GABAPENTIN 100 MG CAP PO SCH (20:26)
[2020-09-10] MEDS: ACETAMINOPHEN 650MG ER TAB (TYLENOL ARTHRITIS) PO SCH (20:27)
[2020-09-10] MEDS ORDERED: DOXEPIN 25 MG CAP PO SCH (21:00)
[2020-09-11] MEDS: **hydrALAZINE HCL** 25 MG TAB PO SCH ×4 (05:06→18:32)
[2020-09-11 06:00] VITALS: BP 142/68
[2020-09-11 07:05] LABS: BASO % 0.6 % (0.0-1.0); EOS # 0.2 10^3/uL (0.0-0.5); EOS % 2.4 % (0.0-3.0); HEMATOCRIT 38.1 % (36.0-47.0); HEMOGLOBIN 12.6 g/dl (12.0-15.5); LYMPH # 1.7 10^3/uL (1.5-5.0); LYMPH % 24.5 % (24.0-44.0); MEAN CORPUSCULAR HEMOGLOBIN 31.3 pg (27.0-33.0); MEAN CORPUSCULAR HGB CONC 33.1 g/dl (32.0-36.5); MEAN CORPUSCULAR VOLUME 94.8 fl (80.0-96.0); MONO # 0.6 10^3/uL (0.0-0.8); NEUTROPHILS # 4.4 10^3/uL (1.5-8.5); NEUTROPHILS % 63.2 % (36.0-66.0); PLATELET COUNT, AUTOMATED 244 10^3/uL (150-450); RED BLOOD COUNT 4.02 10^6/uL (4.00-5.40)
[2020-09-11 07:23] LABS: ALT/SGPT 16 U/L (12-78); BILIRUBIN,TOTAL 0.4 MG/DL (0.2-1.0); BLOOD UREA NITROGEN 24 MG/DL (7-18); CALCIUM LEVEL 8.8 MG/DL (8.8-10.2); CARBON DIOXIDE LEVEL 24 MEQ/L (21-32); CHLORIDE LEVEL 113 MEQ/L (98-107); CREATININE FOR GFR 0.77 MG/DL (0.55-1.30); GLOMERULAR FILTRATION RATE > 60.0 (>32); GLUCOSE, FASTING 118 MG/DL (70-100); POTASSIUM SERUM 4.2 MEQ/L (3.5-5.1); SODIUM LEVEL 144 MEQ/L (136-145); TOTAL PROTEIN 6.4 GM/DL (6.4-8.2)
[2020-09-11] MEDS: REMEDY PHYTOPLEX Z-GUARD PASTE 113GM TUBE (FROM STOREROOM PRODUCT) TOP SCH ×3 (09:00→19:46)
[2020-09-11] MEDS: MECLIZINE 25 MG TABLET PO SCH ×3 (09:38→19:45)
[2020-09-11] MEDS: DOCUSATE SODIUM 100MG CAPSULE PO SCH ×2 (09:38→19:45)
[2020-09-11] MEDS: ACETAMINOPHEN 650MG ER TAB (TYLENOL ARTHRITIS) PO SCH ×2 (09:38→19:45)
[2020-09-11] MEDS: PANTOPRAZOLE 40MG TAB (PROTONIX) PO SCH (09:38)
[2020-09-11] MEDS: NITROFURANTOIN (MACROBID) 100 MG CAP PO SCH (09:38)
[2020-09-11] MEDS: FUROSEMIDE 20 MG TAB PO SCH (09:38)
[2020-09-11] MEDS: METOPROLOL SUCC (TopROL XL) 50MG **XL** TAB PO SCH (09:39)
[2020-09-11] MEDS: SIMVASTATIN 20 MG TAB PO SCH (09:39)
[2020-09-11] MEDS: PREPARATION H SUPP (HEMORRHOID) PR SCH ×2 (09:39→19:46)
[2020-09-11] MEDS: LOSARTAN 50MG TABLET PO SCH (09:39)
[2020-09-11] MEDS: GABAPENTIN 100 MG CAP PO SCH ×2 (09:39→19:45)
[2020-09-11] MEDS: ENOXAPARIN 40MG/0.4ML SYRINGE (J1650 PER 10MG) SC SCH (09:40)
[2020-09-11 14:00] VITALS: BP 134/68
--- NOTE | 2020-09-11 17:05 | IPNPDOC ---
Subjective Date Seen The patient was seen on 09/11/20. Subjective Chief Complaint/HPI Mrs. Crain is an 89 year old female with GERD, depression, and prediabetes who presents with dizziness. MRI and MRA was obtained which was negative for stroke. Most likely a peripheral vertigo. At baseline, she is independent and able to do all ADLs on her own. She is now in ARU to improve on balance and ADLs. This afternoon, she feels well. She still has vertigo. Denies chest pain or dyspnea. Objective Physical Examination General Exam: Positive: Alert, Cooperative Eye Exam: Negative: Sclera icteric ENT Exam: Positive: Atraumatic Neck Exam: Positive: Supple Chest Exam: Positive: Clear to auscultation; Negative: Rales, Rhonchi, Wheezing Heart Exam: Positive: Rate Normal, Regular Rhythm Abdomen Exam: Positive: Normal bowel sounds, Soft; Negative: Tenderness Neuro Exam: Positive: Normal Speech Psych Exam: Positive: Mental status NL, Mood NL Assessment /Plan Assessment Mrs. Crain is an 89 year old female with GERD, depression, and prediabetes who presents with dizziness. MRI and MRA was obtained which was negative for stroke. Most likely a peripheral vertigo. At baseline, she is independent and able to do all ADLs on her own. She is now in ARU to improve on balance and ADLs. Plan/VTE VTE Prophylaxis Ordered?: Yes Plan 1. Peripheral vertigo -MRA and MRI negative -Will need PT for ambulation and OT for ADLs. Patient is completely independent at home -Meclizine started -Patient is in ARU for rehab 2. Hypertension -Continue amlodipine, losartan, metoprolol succinate, and furosemide 3. Anxiety/depression -Continue alprazolam 4. Hyperlipidemia -Continue simvastatin 5. History of recurrent UTI -Continue prophylactic nitrofurantoin 6. DVT ppx -Lovenox Disposition: Per ARU VS, I&O, 24H, Fishbone Vital Signs/I&O Vital Signs Date Time Temp Pulse Resp B/P (MAP) Pulse Ox O2 Delivery O2 Flow Rate FiO2 09/11/20 14:00 97.3 75 16 134/68 (90) 95 Room Air I&O- Last 24 Hours up to 6 AM 09/11/20 06:00 Intake Total 640 ml Balance 640 ml Laboratory Data 24H LABS Laboratory Tests 2 09/11/20 06:38: Immature Granulocyte % (Auto) 0.3, Neutrophils (%) (Auto) 63.2, Lymphocytes (%) (Auto) 24.5, Monocytes (%) (Auto) 9.0H, Eosinophils (%) (Auto) 2.4, Basophils (%) (Auto) 0.6, Neutrophils # (Auto) 4.4, Lymphocytes # (Auto) 1.7, Monocytes # (Auto) 0.6, Eosinophils # (Auto) 0.2, Basophils # (Auto) 0.0, Nucleated Red Blood Cells % (auto) 0.0, Anion Gap 7L, Glomerular Filtration Rate > 60.0, Calcium Level 8.8, Total Bilirubin 0.4, Aspartate Amino Transf (AST/SGOT) 22, Alanine Aminotransferase (ALT/SGPT) 16, Alkaline Phosphatase 61, Total Protein 6.4, Albumin 3.0L, Albumin/Globulin Ratio 0.9L CBC/BMP Laboratory Tests 09/11/20 06:38 GRASYON KEARNEY DO Sep 11, 2020 16:49
[2020-09-11] MEDS: ALPRAZolam 0.5 MG TAB PO SCH (19:45)
[2020-09-11] MEDS: SENNA 8.6 MG TAB (SENOKOT) PO SCH ×2 (19:45→19:49)
[2020-09-11] MEDS: ESTRADIOL VAGINAL TOP SCH (19:46)
[2020-09-11 20:00] VITALS: BP 164/70
[2020-09-12] MEDS: **hydrALAZINE HCL** 25 MG TAB PO SCH ×5 (05:15→23:48)
[2020-09-12 06:00] VITALS: BP 150/76
[2020-09-12] MEDS: SIMVASTATIN 20 MG TAB PO SCH (08:28)
[2020-09-12] MEDS: ACETAMINOPHEN 650MG ER TAB (TYLENOL ARTHRITIS) PO SCH ×2 (08:28→19:42)
[2020-09-12] MEDS: PANTOPRAZOLE 40MG TAB (PROTONIX) PO SCH (08:28)
[2020-09-12] MEDS: NITROFURANTOIN (MACROBID) 100 MG CAP PO SCH (08:28)
[2020-09-12] MEDS: MECLIZINE 25 MG TABLET PO SCH ×3 (08:28→19:42)
[2020-09-12] MEDS: PREPARATION H SUPP (HEMORRHOID) PR SCH ×2 (08:28→19:42)
[2020-09-12] MEDS: FUROSEMIDE 20 MG TAB PO SCH (08:28)
[2020-09-12] MEDS: GABAPENTIN 100 MG CAP PO SCH ×2 (08:28→19:42)
[2020-09-12] MEDS: ENOXAPARIN 40MG/0.4ML SYRINGE (J1650 PER 10MG) SC SCH (08:29)
[2020-09-12] MEDS: REMEDY PHYTOPLEX Z-GUARD PASTE 113GM TUBE (FROM STOREROOM PRODUCT) TOP SCH ×3 (08:29→19:43)
[2020-09-12] MEDS: DOCUSATE SODIUM 100MG CAPSULE PO SCH ×2 (08:29→19:43)
[2020-09-12] MEDS: METOPROLOL SUCC (TopROL XL) 50MG **XL** TAB PO SCH (08:30)
[2020-09-12] MEDS: LOSARTAN 50MG TABLET PO SCH (08:30)
[2020-09-12 14:00] VITALS: BP 131/63
[2020-09-12] MEDS: ALPRAZolam 0.5 MG TAB PO SCH (19:42)
[2020-09-12] MEDS: SENNA 8.6 MG TAB (SENOKOT) PO SCH (19:43)
[2020-09-12] MEDS: ESTRADIOL VAGINAL TOP SCH (19:43)
[2020-09-12 20:00] VITALS: BP 148/67
[2020-09-13] MEDS: **hydrALAZINE HCL** 25 MG TAB PO SCH ×4 (05:31→23:58)
[2020-09-13 06:22] VITALS: BP 150/70
[2020-09-13 06:50] LABS: BASO % 0.7 % (0.0-1.0); EOS # 0.2 10^3/uL (0.0-0.5); EOS % 3.3 % (0.0-3.0); HEMATOCRIT 38.3 % (36.0-47.0); HEMOGLOBIN 12.4 g/dl (12.0-15.5); LYMPH # 1.6 10^3/uL (1.5-5.0); LYMPH % 27.6 % (24.0-44.0); MEAN CORPUSCULAR HGB CONC 32.4 g/dl (32.0-36.5); MEAN CORPUSCULAR VOLUME 95.8 fl (80.0-96.0); MONO # 0.6 10^3/uL (0.0-0.8); MONO % 10.1 % (2.0-8.0); NEUTROPHILS # 3.3 10^3/uL (1.5-8.5); PLATELET COUNT, AUTOMATED 236 10^3/uL (150-450); WHITE BLOOD COUNT 5.7 10^3/uL (4.0-10.0)
[2020-09-13 07:10] LABS: BLOOD UREA NITROGEN 29 MG/DL (7-18); CALCIUM LEVEL 8.7 MG/DL (8.8-10.2); CARBON DIOXIDE LEVEL 26 MEQ/L (21-32); CHLORIDE LEVEL 111 MEQ/L (98-107); CREATININE FOR GFR 0.93 MG/DL (0.55-1.30); GLOMERULAR FILTRATION RATE > 60.0 (>32); GLUCOSE, FASTING 107 MG/DL (70-100); POTASSIUM SERUM 4.1 MEQ/L (3.5-5.1); SODIUM LEVEL 145 MEQ/L (136-145)
[2020-09-13] MEDS: DOCUSATE SODIUM 100MG CAPSULE PO SCH ×2 (09:00→18:55)
[2020-09-13] MEDS: REMEDY PHYTOPLEX Z-GUARD PASTE 113GM TUBE (FROM STOREROOM PRODUCT) TOP SCH ×3 (09:00→21:48)
[2020-09-13] MEDS: FUROSEMIDE 20 MG TAB PO SCH (09:03)
[2020-09-13] MEDS: PREPARATION H SUPP (HEMORRHOID) PR SCH ×2 (09:03→20:17)
[2020-09-13] MEDS: METOPROLOL SUCC (TopROL XL) 50MG **XL** TAB PO SCH (09:03)
[2020-09-13] MEDS: MECLIZINE 25 MG TABLET PO SCH ×3 (09:03→20:12)
[2020-09-13] MEDS: ENOXAPARIN 40MG/0.4ML SYRINGE (J1650 PER 10MG) SC SCH (09:03)
[2020-09-13] MEDS: NITROFURANTOIN (MACROBID) 100 MG CAP PO SCH (09:04)
[2020-09-13] MEDS: PANTOPRAZOLE 40MG TAB (PROTONIX) PO SCH (09:04)
[2020-09-13] MEDS: LOSARTAN 50MG TABLET PO SCH (09:04)
[2020-09-13] MEDS: GABAPENTIN 100 MG CAP PO SCH ×2 (09:04→20:12)
[2020-09-13] MEDS: ACETAMINOPHEN 650MG ER TAB (TYLENOL ARTHRITIS) PO SCH (09:04)
[2020-09-13] MEDS: SIMVASTATIN 20 MG TAB PO SCH (09:13)
[2020-09-13 14:00] VITALS: BP_SYST 125; BP_SYST 129; BP_DIAS 60; BP_DIAS 63
[2020-09-13] MEDS: SENNA 8.6 MG TAB (SENOKOT) PO SCH (18:55)
[2020-09-13 20:00] VITALS: BP 167/74
[2020-09-13] MEDS: ALPRAZolam 0.5 MG TAB PO SCH (20:12)
[2020-09-13] MEDS: ACETAMINOPHEN 500 MG TAB PO SCH (20:16)
[2020-09-13] MEDS: ESTRADIOL VAGINAL TOP SCH (20:17)
[2020-09-14] MEDS: **hydrALAZINE HCL** 25 MG TAB PO SCH ×4 (05:02→23:46)
[2020-09-14 06:15] VITALS: BP 170/70
--- NOTE | 2020-09-14 07:23 | IPNPDOC ---
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 She would like to try going up on her gabapentin. REVIEW OF SYSTEMS: The following is a completed review of systems and has been reviewed. Review of systems otherwise unremarkable. PAIN: Patient self reports +chronic vulvar pain EYES: No recent vision changes EARS, NOSE, & THROAT: No throat pain, or dysphagia, or rhinorrhea CARDIOVASCULAR: Denies chest pain or palpitations PULMONARY: Denies shortness of breath GASTROINTESTINAL: Denies constipation/diarrhea GENITOURINARY: +dysuria MUSCULOSKELETAL:generalized weakness NEUROLOGICAL:denies paresthesias or tremors HEMATOLOGICAL: denies easy bruising SKIN: denies rash PSYCHIATRIC: Unremarkable All other review of systems found to be negative. PHYSICAL EXAMINATION: VITAL SIGNS: Please see below. GENERAL: Pleasant and cooperative. No acute distress. HEENT: PERRL. Extraocular movements intact. Clear conjunctiva CARDIOVASCULAR: Regular rate and rhythm. No murmurs, rubs, or gallops LUNGS: Clear to auscultation bilaterally. No wheezes. No rhonchi ABDOMEN: Soft, nontender, nondistended. Positive bowel sounds. Normal active bowel sounds NEUROLOGICAL: Alert and oriented times three. Cranial nerves II through XII grossly intact. Sensation grossly intact. EXTREMITIES: 5-\5 strength bilateral upper extremities. 5-\5 strength right lower extremity. 5-/5 strength in left lower extremity. ASSESSMENT:89-year-old F with past medical history of HTN who presents status post hypertensive urgency with vertigo contributing to unsteady gait PLAN: 1. Rehab- PT/OT advance mobility and ADLs, strengthen/stretch/maintain ROM all 4 limbs, vestibular eval 2. Neuro- vertigo possibly due to BPV, MRI and CTH negative for stroke or significant intracranial stenosis- Meclizine ordered- dizziness resolved -monitor for further neuro decline 3. Cardiac-HTN with recent HTN urgency, c/u BP meds, additional hydralazine ordered with holding parameters -HLD c/u statin -CHF? on lasix, daily weights -medicine consulted to assist in overall management 4. Renal- hx of CKD, will monitor and consider renal consult if needed 5. - recurrent UTIs on macrobid -chronic vulvar pain on estradiol cream, sitz baths ordered, gabapentin (will increase to 300mg BID for chronic vulvar pain), will add lidocaine gel for vulvar pain 6. DVT ppx- lovenox 7. GI ppx- protonix 8. Pain- tylenol and gabapentin (will increase to 300mg BID for chronic vulvar pain), will add lidocaine gel for vulvar pain 9. Psych-anxiety/depresion c/u xanax and doxepin 10.Dispo- 09-16-20 Allergies Coded Allergies: Sulfa (Sulfonamide Antibiotics) (Verified Allergy, Unknown, 10/19/18) Vital Signs Vital Signs Date Time Temp Pulse Resp B/P (MAP) Pulse Ox O2 Delivery O2 Flow Rate FiO2 09/14/20 06:15 97.7 65 18 170/70 (103) 97 Room Air Microbiology Microbiology 09/12/20 Urine Culture - Final, Complete Current Medications Current Medications Current Medications Medications (Trade) Dose Ordered Sig/Nicole Route PRN Reason Start Time Stop Time Status Last Admin Dose Admin Acetaminophen (Tylenol Arthritis Er) 1,300 mg BID PO 09/10/20 21:00 09/13/20 11:49 DC 09/13/20 09:04 Acetaminophen (Tylenol Tab) 1,000 mg BID PO 09/13/20 21:00 09/13/20 20:16 Alprazolam (Xanax) 0.5 mg QHS PO 09/10/20 21:00 09/13/20 20:12 Amlodipine Besylate (Norvasc) 2.5 mg QHS PO 09/10/20 21:00 09/13/20 20:16 Bisacodyl (Dulcolax Suppository) 10 mg DAILYPRN PRN [place] CONSTIPATION 09/10/20 12:05 Docusate Sodium (Colace) 100 mg BID PO 09/10/20 21:00 09/11/20 19:45 Doxepin HCl (SINEquan) 10 mg QHS PO 09/10/20 21:00 09/10/20 16:47 DC Enoxaparin Sodium (Lovenox) 40 mg DAILY SC 09/11/20 09:00 09/13/20 09:03 Furosemide (Lasix) 20 mg DAILY PO 09/11/20 09:00 09/13/20 09:03 Gabapentin (Neurontin) 200 mg BID PO 09/10/20 21:00 09/13/20 20:12 Hydralazine HCl (Apresoline) 25 mg Q6H PO 09/10/20 18:00 09/14/20 05:02 Losartan Potassium (Cozaar) 50 mg DAILY PO 09/11/20 09:00 09/13/20 09:04 Meclizine HCl (Antivert) 25 mg TID PO 09/10/20 16:00 09/13/20 20:12 Metoprolol Succinate (TopROL XL) 50 mg DAILY PO 09/11/20 09:00 09/13/20 09:03 Miscellaneous (Unresolved Patient Own Med Order) SEE LABEL COMMENTS DAILY XX 09/10/20 09:00 09/10/20 09:00 Nitrofurantoin Monoh/Nitrofur Macro (Macrobid) 100 mg DAILY PO 09/11/20 09:00 09/13/20 09:04 Pantoprazole Sodium (Protonix) 40 mg DAILY PO 09/11/20 09:00 09/13/20 09:04 Patient Own Medication (Patient'S Own Med) estradiol 0.01% apply... QHS TOP 09/11/20 21:00 09/13/20 20:17 Phenylephrine HCl (Preparation H Supp) 1 sup BID [place] 09/10/20 21:00 09/13/20 20:17 Senna (Senokot) 1 tab QHS PO 09/10/20 21:00 09/10/20 20:26 Simvastatin (Zocor) 20 mg DAILY PO 09/11/20 09:00 09/13/20 09:13 TAWANDA LOAIZA MD Sep 14, 2020 07:23
[2020-09-14] MEDS: DOCUSATE SODIUM 100MG CAPSULE PO SCH ×2 (09:00→20:19)
[2020-09-14] MEDS: REMEDY PHYTOPLEX Z-GUARD PASTE 113GM TUBE (FROM STOREROOM PRODUCT) TOP SCH ×3 (09:00→20:26)
[2020-09-14] MEDS: ACETAMINOPHEN 500 MG TAB PO SCH ×2 (09:31→20:18)
[2020-09-14] MEDS: PANTOPRAZOLE 40MG TAB (PROTONIX) PO SCH (09:32)
[2020-09-14] MEDS: MECLIZINE 25 MG TABLET PO SCH ×3 (09:32→20:20)
[2020-09-14] MEDS: GABAPENTIN 100 MG CAP PO SCH (09:32)
[2020-09-14] MEDS: PREPARATION H SUPP (HEMORRHOID) PR SCH ×2 (09:32→20:24)
[2020-09-14] MEDS: SIMVASTATIN 20 MG TAB PO SCH (09:33)
[2020-09-14] MEDS: METOPROLOL SUCC (TopROL XL) 50MG **XL** TAB PO SCH (09:33)
[2020-09-14] MEDS: FUROSEMIDE 20 MG TAB PO SCH (09:33)
[2020-09-14] MEDS: NITROFURANTOIN (MACROBID) 100 MG CAP PO SCH (09:33)
[2020-09-14] MEDS: LOSARTAN 50MG TABLET PO SCH (09:33)
[2020-09-14] MEDS: ENOXAPARIN 40MG/0.4ML SYRINGE (J1650 PER 10MG) SC SCH (09:35)
[2020-09-14] MEDS: LIDOCAINE 4% CREAM 5GM (LMX4) TOP SCH (12:02)
[2020-09-14 14:00] VITALS: BP 129/68
[2020-09-14] MEDS: SENNA 8.6 MG TAB (SENOKOT) PO SCH (20:19)
[2020-09-14] MEDS: ALPRAZolam 0.5 MG TAB PO SCH (20:19)
[2020-09-14] MEDS: GABAPENTIN 300 MG CAP PO SCH (20:20)
[2020-09-14] MEDS: ESTRADIOL VAGINAL TOP SCH (20:26)
[2020-09-14 21:10] VITALS: BP 131/60
[2020-09-15] MEDS: **hydrALAZINE HCL** 25 MG TAB PO SCH ×3 (05:42→17:08)
[2020-09-15 06:05] VITALS: BP 150/70
[2020-09-15 07:37] LABS: BASO % 0.5 % (0.0-1.0); EOS # 0.2 10^3/uL (0.0-0.5); HEMATOCRIT 39.7 % (36.0-47.0); HEMOGLOBIN 13.3 g/dl (12.0-15.5); LYMPH # 1.7 10^3/uL (1.5-5.0); LYMPH % 30.1 % (24.0-44.0); MEAN CORPUSCULAR HEMOGLOBIN 31.8 pg (27.0-33.0); MEAN CORPUSCULAR HGB CONC 33.5 g/dl (32.0-36.5); MONO # 0.5 10^3/uL (0.0-0.8); MONO % 8.8 % (2.0-8.0); NEUTROPHILS # 3.2 10^3/uL (1.5-8.5); NEUTROPHILS % 57.2 % (36.0-66.0); PLATELET COUNT, AUTOMATED 265 10^3/uL (150-450); RED BLOOD COUNT 4.18 10^6/uL (4.00-5.40); WHITE BLOOD COUNT 5.7 10^3/uL (4.0-10.0)
[2020-09-15 07:56] LABS: BLOOD UREA NITROGEN 27 MG/DL (7-18); CALCIUM LEVEL 8.9 MG/DL (8.8-10.2); CARBON DIOXIDE LEVEL 26 MEQ/L (21-32); CHLORIDE LEVEL 110 MEQ/L (98-107); CREATININE FOR GFR 0.88 MG/DL (0.55-1.30); GLOMERULAR FILTRATION RATE > 60.0 (>32); GLUCOSE, FASTING 119 MG/DL (70-100); POTASSIUM SERUM 4.2 MEQ/L (3.5-5.1); SODIUM LEVEL 141 MEQ/L (136-145)
[2020-09-15] MEDS: DOCUSATE SODIUM 100MG CAPSULE PO SCH ×2 (09:00→20:58)
[2020-09-15] MEDS: REMEDY PHYTOPLEX Z-GUARD PASTE 113GM TUBE (FROM STOREROOM PRODUCT) TOP SCH ×3 (09:00→20:59)
[2020-09-15] MEDS: LIDOCAINE 4% CREAM 5GM (LMX4) TOP SCH (09:11)
[2020-09-15] MEDS: FUROSEMIDE 20 MG TAB PO SCH (09:12)
[2020-09-15] MEDS: MECLIZINE 25 MG TABLET PO SCH (09:12)
[2020-09-15] MEDS: LOSARTAN 50MG TABLET PO SCH (09:12)
[2020-09-15] MEDS: METOPROLOL SUCC (TopROL XL) 50MG **XL** TAB PO SCH (09:12)
[2020-09-15] MEDS: PANTOPRAZOLE 40MG TAB (PROTONIX) PO SCH (09:12)
[2020-09-15] MEDS: NITROFURANTOIN (MACROBID) 100 MG CAP PO SCH (09:13)
[2020-09-15] MEDS: GABAPENTIN 300 MG CAP PO SCH ×2 (09:13→20:58)
[2020-09-15] MEDS: ACETAMINOPHEN 500 MG TAB PO SCH ×2 (09:13→20:58)
[2020-09-15] MEDS: PREPARATION H SUPP (HEMORRHOID) PR SCH ×2 (09:13→20:57)
[2020-09-15] MEDS: SIMVASTATIN 20 MG TAB PO SCH (09:13)
[2020-09-15] MEDS: ENOXAPARIN 40MG/0.4ML SYRINGE (J1650 PER 10MG) SC SCH (09:14)
[2020-09-15] MEDS ORDERED: COZA50TA PO (09:16)
[2020-09-15] MEDS ORDERED: METO1TAB7 PO (09:16)
[2020-09-15] MEDS ORDERED: NITR100C2 PO (09:16)
[2020-09-15] MEDS ORDERED: NORV5TAB PO (09:16)
[2020-09-15] MEDS ORDERED: LIDO4CR TOP (09:16)
[2020-09-15] MEDS ORDERED: SIMV20TA22 PO (09:16)
[2020-09-15] MEDS ORDERED: MECL-86 PO (09:16)
[2020-09-15] MEDS ORDERED: FURO20TA2 PO (09:16)
[2020-09-15] MEDS ORDERED: GABA-282 PO (09:16)
[2020-09-15] MEDS ORDERED: MECLIZINE 25 MG TABLET PO PRN (09:20)
--- NOTE | 2020-09-15 09:22 | IPNPDOC ---
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 REVIEW OF SYSTEMS: The following is a completed review of systems and has been reviewed. Review of systems otherwise unremarkable. PAIN: Patient self reports +chronic vulvar pain EYES: No recent vision changes EARS, NOSE, & THROAT: No throat pain, or dysphagia, or rhinorrhea CARDIOVASCULAR: Denies chest pain or palpitations PULMONARY: Denies shortness of breath GASTROINTESTINAL: Denies constipation/diarrhea GENITOURINARY: +vulvar pain MUSCULOSKELETAL:generalized weakness NEUROLOGICAL:denies paresthesias or tremors HEMATOLOGICAL: denies easy bruising SKIN: denies rash PSYCHIATRIC: Unremarkable All other review of systems found to be negative. PHYSICAL EXAMINATION: VITAL SIGNS: Please see below. GENERAL: Pleasant and cooperative. No acute distress. HEENT: PERRL. Extraocular movements intact. Clear conjunctiva CARDIOVASCULAR: Regular rate and rhythm. No murmurs, rubs, or gallops LUNGS: Clear to auscultation bilaterally. No wheezes. No rhonchi ABDOMEN: Soft, nontender, nondistended. Positive bowel sounds. Normal active bowel sounds NEUROLOGICAL: Alert and oriented times three. Cranial nerves II through XII grossly intact. Sensation grossly intact. EXTREMITIES: 5-\5 strength bilateral upper extremities. 5-\5 strength right lower extremity. 5-/5 strength in left lower extremity. ASSESSMENT:89-year-old F with past medical history of HTN who presents status post hypertensive urgency with vertigo contributing to unsteady gait PLAN: 1. Rehab- PT/OT advance mobility and ADLs, strengthen/stretch/maintain ROM all 4 limbs, vestibular eval 2. Neuro- vertigo possibly due to BPV, MRI and CTH negative for stroke or significant intracranial stenosis- Meclizine ordered- dizziness resolved -monitor for further neuro decline 3. Cardiac-HTN with recent HTN urgency, c/u BP meds, additional hydralazine ordered with holding parameters, have increased metoprolol and amlodipine dosing -HLD c/u statin -CHF? on lasix, daily weights -medicine consulted to assist in overall management 4. Renal- hx of CKD, will monitor and consider renal consult if needed 5. - recurrent UTIs on macrobid -chronic vulvar pain on estradiol cream, sitz baths ordered, gabapentin (increased to 300mg BID for chronic vulvar pain), c/u lidocaine gel for vulvar pain 6. DVT ppx- lovenox 7. GI ppx- protonix 8. Pain- tylenol and gabapentin (increased to 300mg BID for chronic vulvar pain), c/u add lidocaine gel for vulvar pain 9. Psych-anxiety/depresion c/u xanax and doxepin 10.Dispo- 09-17-20 to home, progressing towards goals Allergies Coded Allergies: Sulfa (Sulfonamide Antibiotics) (Verified Allergy, Unknown, 10/19/18) Vital Signs Vital Signs Date Time Temp Pulse Resp B/P (MAP) Pulse Ox O2 Delivery O2 Flow Rate FiO2 09/15/20 09:12 70 120/60 09/15/20 06:05 97.5 18 95 Room Air Laboratory Data CBC/BMP Laboratory Tests 09/15/20 07:03 Labs 24H Laboratory Tests 2 09/15/20 07:03: Immature Granulocyte % (Auto) 0.4, Neutrophils (%) (Auto) 57.2, Lymphocytes (%) (Auto) 30.1, Monocytes (%) (Auto) 8.8H, Eosinophils (%) (Auto) 3.0, Basophils (%) (Auto) 0.5, Neutrophils # (Auto) 3.2, Lymphocytes # (Auto) 1.7, Monocytes # (Auto) 0.5, Eosinophils # (Auto) 0.2, Basophils # (Auto) 0.0, Nucleated Red Blood Cells % (auto) 0.0, Anion Gap 5L, Glomerular Filtration Rate > 60.0, Calcium Level 8.9 Microbiology Microbiology 09/12/20 Urine Culture - Final, Complete Current Medications Current Medications Current Medications Medications (Trade) Dose Ordered Sig/Nicole Route PRN Reason Start Time Stop Time Status Last Admin Dose Admin Acetaminophen (Tylenol Arthritis Er) 1,300 mg BID PO 09/10/20 21:00 09/13/20 11:49 DC 09/13/20 09:04 Acetaminophen (Tylenol Tab) 1,000 mg BID PO 09/13/20 21:00 09/15/20 09:13 Alprazolam (Xanax) 0.5 mg QHS PO 09/10/20 21:00 09/14/20 20:19 Amlodipine Besylate (Norvasc) 2.5 mg BID PO 09/14/20 09:00 09/15/20 09:13 Amlodipine Besylate (Norvasc) 2.5 mg QHS PO 09/10/20 21:00 09/14/20 07:23 DC 09/13/20 20:16 Bisacodyl (Dulcolax Suppository) 10 mg DAILYPRN PRN [place] CONSTIPATION 09/10/20 12:05 Docusate Sodium (Colace) 100 mg BID PO 09/10/20 21:00 09/14/20 20:19 Doxepin HCl (SINEquan) 10 mg QHS PO 09/10/20 21:00 09/10/20 16:47 DC Enoxaparin Sodium (Lovenox) 40 mg DAILY SC 09/11/20 09:00 09/15/20 09:14 Furosemide (Lasix) 20 mg DAILY PO 09/11/20 09:00 09/15/20 09:12 Gabapentin (Neurontin) 200 mg BID PO 09/10/20 21:00 09/14/20 10:16 DC 09/14/20 09:32 Gabapentin (Neurontin) 300 mg BID PO 09/14/20 21:00 09/15/20 09:13 Hydralazine HCl (Apresoline) 25 mg Q6H PO 09/10/20 18:00 09/15/20 05:42 Lidocaine HCl (Lmx 4/Anecream) apply to vulva daily DAILY TOP 09/14/20 09:00 09/15/20 09:11 Losartan Potassium (Cozaar) 50 mg DAILY PO 09/11/20 09:00 09/15/20 09:12 Meclizine HCl (Antivert) 25 mg TID PO 09/10/20 16:00 09/15/20 09:12 Metoprolol Succinate (TopROL XL) 50 mg DAILY PO 09/11/20 09:00 09/14/20 10:17 DC 09/14/20 09:33 Metoprolol Succinate (TopROL XL) 75 mg DAILY PO 09/15/20 09:00 09/15/20 09:12 Miscellaneous (Unresolved Patient Own Med Order) SEE LABEL COMMENTS DAILY XX 09/10/20 09:00 09/10/20 09:00 Nitrofurantoin Monoh/Nitrofur Macro (Macrobid) 100 mg DAILY PO 09/11/20 09:00 09/15/20 09:13 Pantoprazole Sodium (Protonix) 40 mg DAILY PO 09/11/20 09:00 09/15/20 09:12 Patient Own Medication (Patient'S Own Med) estradiol 0.01% apply... QHS TOP 09/11/20 21:00 09/14/20 20:26 Phenylephrine HCl (Preparation H Supp) 1 sup BID [place] 09/10/20 21:00 09/15/20 09:13 Senna (Senokot) 1 tab QHS PO 09/10/20 21:00 09/14/20 20:19 Simvastatin (Zocor) 20 mg DAILY PO 09/11/20 09:00 09/15/20 09:13 TAWANDA LOAIZA MD Sep 15, 2020 09:22
[2020-09-15 14:17] VITALS: BP 128/56
[2020-09-15] MEDS: amLODIPine 5 MG TAB PO SCH (20:58)
[2020-09-15] MEDS: SENNA 8.6 MG TAB (SENOKOT) PO SCH (20:58)
[2020-09-15] MEDS: ALPRAZolam 0.5 MG TAB PO SCH (20:58)
[2020-09-15] MEDS: ESTRADIOL VAGINAL TOP SCH (21:00)
[2020-09-15 22:00] VITALS: BP 125/70
[2020-09-16] MEDS: **hydrALAZINE HCL** 25 MG TAB PO SCH ×5 (05:36→23:44)
[2020-09-16 06:00] VITALS: BP 152/74
--- NOTE | 2020-09-16 08:35 | IPNPDOC ---
PM&R Progress Note DATE OF SERVICE: Sep 16, 2020 [facility]ic[facility] Progress Note Subjective: REVIEW OF SYSTEMS: The following is a completed review of systems and has been reviewed. Review of systems otherwise unremarkable. PAIN: Patient self reports +chronic vulvar pain EYES: No recent vision changes EARS, NOSE, & THROAT: No throat pain, or dysphagia, or rhinorrhea CARDIOVASCULAR: Denies chest pain or palpitations PULMONARY: Denies shortness of breath GASTROINTESTINAL: Denies constipation/diarrhea GENITOURINARY: +vulvar pain MUSCULOSKELETAL:generalized weakness NEUROLOGICAL:denies paresthesias or tremors HEMATOLOGICAL: denies easy bruising SKIN: denies rash PSYCHIATRIC: Unremarkable All other review of systems found to be negative. PHYSICAL EXAMINATION: VITAL SIGNS: Please see below. GENERAL: Pleasant and cooperative. No acute distress. HEENT: PERRL. Extraocular movements intact. Clear conjunctiva CARDIOVASCULAR: Regular rate and rhythm. No murmurs, rubs, or gallops LUNGS: Clear to auscultation bilaterally. No wheezes. No rhonchi ABDOMEN: Soft, nontender, nondistended. Positive bowel sounds. Normal active bowel sounds NEUROLOGICAL: Alert and oriented times three. Cranial nerves II through XII grossly intact. Sensation grossly intact. EXTREMITIES: 5-\5 strength bilateral upper extremities. 5-\5 strength right lower extremity. 5-/5 strength in left lower extremity. ASSESSMENT:89-year-old F with past medical history of HTN who presents status post hypertensive urgency with vertigo contributing to unsteady gait PLAN: 1. Rehab- PT/OT advance mobility and ADLs, strengthen/stretch/maintain ROM all 4 limbs, vestibular eval 2. Neuro- vertigo possibly due to BPV, MRI and CTH negative for stroke or significant intracranial stenosis- Meclizine ordered- dizziness resolved -monitor for further neuro decline 3. Cardiac-HTN with recent HTN urgency, c/u BP meds, additional hydralazine ordered with holding parameters, have increased metoprolol and amlodipine dosing -HLD c/u statin -CHF? on lasix, daily weights -medicine consulted to assist in overall management 4. Renal- hx of CKD, will monitor and consider renal consult if needed 5. - recurrent UTIs on macrobid -chronic vulvar pain on estradiol cream, sitz baths ordered, gabapentin (increased to 300mg BID for chronic vulvar pain), c/u lidocaine gel for vulvar pain 6. DVT ppx- lovenox 7. GI ppx- protonix 8. Pain- tylenol and gabapentin (increased to 300mg BID for chronic vulvar pain), c/u add lidocaine gel for vulvar pain 9. Psych-anxiety/depresion c/u xanax and doxepin 10.Dispo- 09-17-20 to home, progressing towards goals Allergies Coded Allergies: Sulfa (Sulfonamide Antibiotics) (Verified Allergy, Unknown, 10/19/18) Vital Signs Vital Signs Date Time Temp Pulse Resp B/P (MAP) Pulse Ox O2 Delivery O2 Flow Rate FiO2 09/16/20 06:00 98.0 70 18 152/74 (100) 96 Room Air Microbiology Microbiology 09/12/20 Urine Culture - Final, Complete Current Medications Current Medications Current Medications Medications (Trade) Dose Ordered Sig/Nicole Route PRN Reason Start Time Stop Time Status Last Admin Dose Admin Acetaminophen (Tylenol Arthritis Er) 1,300 mg BID PO 09/10/20 21:00 09/13/20 11:49 DC 09/13/20 09:04 Acetaminophen (Tylenol Tab) 1,000 mg BID PO 09/13/20 21:00 09/15/20 20:58 Alprazolam (Xanax) 0.5 mg QHS PO 09/10/20 21:00 09/15/20 20:58 Amlodipine Besylate (Norvasc) 2.5 mg BID PO 09/14/20 09:00 09/15/20 09:18 DC 09/15/20 09:13 Amlodipine Besylate (Norvasc) 2.5 mg QHS PO 09/10/20 21:00 09/14/20 07:23 DC 09/13/20 20:16 Amlodipine Besylate (Norvasc) 5 mg BID PO 09/15/20 21:00 09/15/20 20:58 Bisacodyl (Dulcolax Suppository) 10 mg DAILYPRN PRN [place] CONSTIPATION 09/10/20 12:05 Docusate Sodium (Colace) 100 mg BID PO 09/10/20 21:00 09/14/20 20:19 Doxepin HCl (SINEquan) 10 mg QHS PO 09/10/20 21:00 09/10/20 16:47 DC Enoxaparin Sodium (Lovenox) 40 mg DAILY SC 09/11/20 09:00 09/15/20 09:14 Furosemide (Lasix) 20 mg DAILY PO 09/11/20 09:00 09/15/20 09:12 Gabapentin (Neurontin) 200 mg BID PO 09/10/20 21:00 09/14/20 10:16 DC 09/14/20 09:32 Gabapentin (Neurontin) 300 mg BID PO 09/14/20 21:00 09/15/20 20:58 Hydralazine HCl (Apresoline) 25 mg Q6H PO 09/10/20 18:00 09/16/20 05:36 Lidocaine HCl (Lmx 4/Anecream) apply to vulva daily DAILY TOP 09/14/20 09:00 09/15/20 09:11 Losartan Potassium (Cozaar) 50 mg DAILY PO 09/11/20 09:00 09/15/20 09:12 Meclizine HCl (Antivert) 25 mg TID PO 09/10/20 16:00 09/15/20 09:18 DC 09/15/20 09:12 Meclizine HCl (Antivert) 25 mg TID PRN PO DIZZINESS 09/15/20 09:20 Metoprolol Succinate (TopROL XL) 50 mg DAILY PO 09/11/20 09:00 09/14/20 10:17 DC 09/14/20 09:33 Metoprolol Succinate (TopROL XL) 75 mg DAILY PO 09/15/20 09:00 09/15/20 09:12 Miscellaneous (Unresolved Patient Own Med Order) SEE LABEL COMMENTS DAILY XX 09/10/20 09:00 09/10/20 09:00 Nitrofurantoin Monoh/Nitrofur Macro (Macrobid) 100 mg DAILY PO 09/11/20 09:00 09/15/20 09:13 Pantoprazole Sodium (Protonix) 40 mg DAILY PO 09/11/20 09:00 09/15/20 09:12 Patient Own Medication (Patient'S Own Med) estradiol 0.01% apply... QHS TOP 09/11/20 21:00 09/15/20 21:00 Phenylephrine HCl (Preparation H Supp) 1 sup BID [place] 09/10/20 21:00 09/15/20 20:57 Senna (Senokot) 1 tab QHS PO 09/10/20 21:00 09/14/20 20:19 Simvastatin (Zocor) 20 mg DAILY PO 09/11/20 09:00 09/15/20 09:13 TAWANDA LOAIZA MD Sep 16, 2020 08:35
[2020-09-16] MEDS: REMEDY PHYTOPLEX Z-GUARD PASTE 113GM TUBE (FROM STOREROOM PRODUCT) TOP SCH ×3 (09:00→20:12)
[2020-09-16] MEDS: DOCUSATE SODIUM 100MG CAPSULE PO SCH ×2 (09:00→20:12)
[2020-09-16] MEDS: GABAPENTIN 300 MG CAP PO SCH ×2 (09:43→20:11)
[2020-09-16] MEDS: SIMVASTATIN 20 MG TAB PO SCH (09:43)
[2020-09-16] MEDS: PANTOPRAZOLE 40MG TAB (PROTONIX) PO SCH (09:43)
[2020-09-16] MEDS: PREPARATION H SUPP (HEMORRHOID) PR SCH ×2 (09:44→20:11)
[2020-09-16] MEDS: NITROFURANTOIN (MACROBID) 100 MG CAP PO SCH (09:44)
[2020-09-16] MEDS: FUROSEMIDE 20 MG TAB PO SCH (09:44)
[2020-09-16] MEDS: amLODIPine 5 MG TAB PO SCH ×2 (09:48→20:11)
[2020-09-16] MEDS: ACETAMINOPHEN 500 MG TAB PO SCH ×2 (09:48→20:11)
[2020-09-16] MEDS: LOSARTAN 50MG TABLET PO SCH (09:48)
[2020-09-16] MEDS: METOPROLOL SUCC (TopROL XL) 50MG **XL** TAB PO SCH (09:49)
[2020-09-16] MEDS: ENOXAPARIN 40MG/0.4ML SYRINGE (J1650 PER 10MG) SC SCH (09:50)
[2020-09-16] MEDS: LIDOCAINE 4% CREAM 5GM (LMX4) TOP SCH (09:51)
[2020-09-16 11:53] VITALS: BP 124/60
[2020-09-16 14:03] VITALS: BP 112/56
[2020-09-16 20:00] VITALS: BP 144/66
[2020-09-16] MEDS: ALPRAZolam 0.5 MG TAB PO SCH (20:11)
[2020-09-16] MEDS: SENNA 8.6 MG TAB (SENOKOT) PO SCH (20:12)
[2020-09-16] MEDS: ESTRADIOL VAGINAL TOP SCH (20:12)
[2020-09-17] MEDS: **hydrALAZINE HCL** 25 MG TAB PO SCH ×2 (05:39→13:07)
[2020-09-17 06:00] VITALS: BP 152/68
[2020-09-17] MEDS: GABAPENTIN 300 MG CAP PO SCH (07:30)
[2020-09-17] MEDS: FUROSEMIDE 20 MG TAB PO SCH (07:30)
[2020-09-17] MEDS: PANTOPRAZOLE 40MG TAB (PROTONIX) PO SCH (07:30)
[2020-09-17] MEDS: PREPARATION H SUPP (HEMORRHOID) PR SCH (07:30)
[2020-09-17] MEDS: SIMVASTATIN 20 MG TAB PO SCH (07:30)
[2020-09-17] MEDS: ACETAMINOPHEN 500 MG TAB PO SCH (07:30)
[2020-09-17] MEDS: NITROFURANTOIN (MACROBID) 100 MG CAP PO SCH (07:31)
[2020-09-17] MEDS: METOPROLOL SUCC (TopROL XL) 50MG **XL** TAB PO SCH (07:32)
[2020-09-17] MEDS: amLODIPine 5 MG TAB PO SCH (07:32)
[2020-09-17] MEDS: LOSARTAN 50MG TABLET PO SCH (07:32)
[2020-09-17] MEDS: DOCUSATE SODIUM 100MG CAPSULE PO SCH (07:33)
[2020-09-17] MEDS: REMEDY PHYTOPLEX Z-GUARD PASTE 113GM TUBE (FROM STOREROOM PRODUCT) TOP SCH (07:33)
[2020-09-17] MEDS: ENOXAPARIN 40MG/0.4ML SYRINGE (J1650 PER 10MG) SC SCH (07:33)
[2020-09-17] MEDS: LIDOCAINE 4% CREAM 5GM (LMX4) TOP SCH (07:36)
[2020-09-17 13:07] VITALS: BP 147/60
== END 2020-09-17 14:53 | disposition home or self-care (01) | DRG 149 ==
LOC: M PM&R 15:30
PROVIDERS: ADMIT Physical Medicine & Rehabilitation; ATTEND Physical Medicine & Rehabilitation
DX: H81.399 Other peripheral vertigo, unspecified ear (principal); N39.0 Urinary tract infection, site not specified; R26.81 Unsteadiness on feet; I12.9 Hypertensive chronic kidney disease with stage 1 through stage 4 chronic kidney disease, or unspecified chronic kidney disease; K21.9 Gastro-esophageal reflux disease without esophagitis; N18.9 Chronic kidney disease, unspecified; E78.5 Hyperlipidemia, unspecified; F32.9 Major depressive disorder, single episode, unspecified; R10.2 Pelvic and perineal pain; Z74.09 Other reduced mobility; Z74.1 Need for assistance with personal care; F41.9 Anxiety disorder, unspecified; Z85.42 Personal history of malignant neoplasm of other parts of uterus; Z87.440 Personal history of urinary (tract) infections; Z87.891 Personal history of nicotine dependence; Z98.49 Cataract extraction status, unspecified eye; Z87.81 Personal history of (healed) traumatic fracture; Z90.710 Acquired absence of both cervix and uterus; Z79.899 Other long term (current) drug therapy; Z88.2 Allergy status to sulfonamides; R53.1 Weakness

== ENCOUNTER → 2020-10-11 | Outpatient (CLI) | payer MEDICARE ==
[~2020-10-11] MED LIST changes: +COZA50TA PO; +GABA-282 PO; +LIDO4CR TOP; +NORV5TAB PO
[2020-10-11 14:19] LABS: BASO # 0.1 10^3/uL (0.0-0.2); BASO % 0.8 % (0.0-1.0); EOS # 0.2 10^3/uL (0.0-0.5); EOS % 2.9 % (0.0-3.0); HEMATOCRIT 40.3 % (36.0-47.0); HEMOGLOBIN 12.9 g/dl (12.0-15.5); LYMPH # 1.8 10^3/uL (1.5-5.0); LYMPH % 29.1 % (24.0-44.0); MEAN CORPUSCULAR HEMOGLOBIN 30.9 pg (27.0-33.0); MEAN CORPUSCULAR VOLUME 96.6 fl (80.0-96.0); MONO # 0.6 10^3/uL (0.0-0.8); MONO % 8.7 % (2.0-8.0); NEUTROPHILS # 3.7 10^3/uL (1.5-8.5); NEUTROPHILS % 58.3 % (36.0-66.0); PLATELET COUNT, AUTOMATED 268 10^3/uL (150-450); RED BLOOD COUNT 4.17 10^6/uL (4.00-5.40); WHITE BLOOD COUNT 6.3 10^3/uL (4.0-10.0)
[2020-10-11 14:44] LABS: BLOOD UREA NITROGEN 26 MG/DL (7-18); CALCIUM LEVEL 9.4 MG/DL (8.8-10.2); CARBON DIOXIDE LEVEL 28 MEQ/L (21-32); CHLORIDE LEVEL 110 MEQ/L (98-107); CREATININE FOR GFR 0.92 MG/DL (0.55-1.30); GLOMERULAR FILTRATION RATE > 60.0 (>32); GLUCOSE, FASTING 123 MG/DL (70-100); NT-PRO BNP 264 PG/ML (<450); POTASSIUM SERUM 4.3 MEQ/L (3.5-5.1); SODIUM LEVEL 141 MEQ/L (136-145)
== END ==
LOC: M PLALAB 09:52
PROVIDERS: ATTEND Family Medicine
DX: R60.0 Localized edema (principal); K21.9 Gastro-esophageal reflux disease without esophagitis

== ENCOUNTER → 2020-12-07 | Outpatient (CLI) | payer MEDICARE ==
[2020-12-07 13:37] LABS: BASO # 0.1 10^3/uL (0.0-0.2); BASO % 0.7 % (0.0-1.0); EOS # 0.2 10^3/uL (0.0-0.5); EOS % 2.5 % (0.0-3.0); HEMOGLOBIN 12.8 g/dl (12.0-15.5); LYMPH # 2.1 10^3/uL (1.5-5.0); LYMPH % 29.5 % (24.0-44.0); MEAN CORPUSCULAR VOLUME 96.9 fl (80.0-96.0); MONO # 0.6 10^3/uL (0.0-0.8); NEUTROPHILS # 4.2 10^3/uL (1.5-8.5); PLATELET COUNT, AUTOMATED 315 10^3/uL (150-450); RED BLOOD COUNT 4.13 10^6/uL (4.00-5.40); WHITE BLOOD COUNT 7.1 10^3/uL (4.0-10.0)
[2020-12-07 14:27] LABS: ALBUMIN 3.4 GM/DL (3.2-5.2); BILIRUBIN,TOTAL 0.6 MG/DL (0.2-1.0); CALCIUM LEVEL 9.3 MG/DL (8.8-10.2); CHOLESTEROL RISK RATIO 3.86 (<5); CREATININE FOR GFR 1.06 MG/DL (0.55-1.30); POTASSIUM SERUM 4.2 MEQ/L (3.5-5.1); TOTAL PROTEIN 7.1 GM/DL (6.4-8.2)
== END ==
LOC: M PLALAB 09:33
PROVIDERS: ATTEND Family Medicine
DX: R60.0 Localized edema (principal); R73.03 Prediabetes; E78.2 Mixed hyperlipidemia